=== PATIENT | female | born 1990 | race Caucasian/White ===

== ENCOUNTER 2018-04-24 21:18 | Emergency (ER) | payer SELFPAY ==
[2018-04-24] MEDS ORDERED: Alum Hydrox/Mag Hydrox/Simeth 15 ML, Metoclopramide 5 MG, Lidocaine 2% 5 ML PO ONE ×3 (21:39)
[2018-04-24] MEDS ORDERED: Ondansetron 4 MG/2 ML SDV IVPUSH ONE (21:40)
[2018-04-24] MEDS ORDERED: Sodium Chloride 0.9% 1,000 ML IV ONE (21:40)
[2018-04-24] MEDS ORDERED: Pantoprazole 40 MG Vial IVPUSH ONE (21:40)
--- NOTE | 2018-04-24 21:43 | EDM.PDOC ---
ED HPI GENERAL MEDICAL PROBLEM - General Chief Complaint: Abdominal Pain Stated Complaint: PT HAS STOMACH PAINS Time Seen by Provider: 04/24/18 21:34 - History of Present Illness INITIAL COMMENTS - FREE TEXT/NARRATIVE: HISTORY AND PHYSICAL: History of present illness: Patient's 27-year-old white female sensory concern of upper abdominal pain patient has had a prior cholecystectomy she's had this for past 1 week she describes it as somewhat sharp vague intermittent was worse today there's been no fever chills chest pain shortness breath no diarrhea she has had some vomiting she denies history of known peptic ulcer disease or gastroesophageal reflux disease Review of systems: As per history of present illness and below otherwise all systems reviewed and negative. Past medical history: As per history of present illness and as reviewed below otherwise noncontributory. Surgical history: As per history of present illness and as reviewed below otherwise noncontributory. Social history: No reported history of drug or alcohol abuse. Family history: As per history of present illness and as reviewed below otherwise noncontributory. Physical exam: HEENT: Atraumatic, normocephalic, pupils reactive, negative for conjunctival pallor or scleral icterus, mucous membranes moist, throat clear, neck supple, nontender, trachea midline. Lungs: Clear to auscultation, breath sounds equal bilaterally, chest nontender. Heart: S1S2, regular, negative for clicks, rubs, or JVD. Abdomen: Soft, nondistended, no localized tenderness. Negative for masses or hepatosplenomegaly. Negative for costovertebral tenderness. Pelvis: Stable nontender. Genitourinary: Deferred. Rectal: Deferred. Extremities: Atraumatic, negative for cords or calf pain. Neurovascular unremarkable. Neuro: Awake, alert, oriented. Cranial nerves II through XII unremarkable. Cerebellum unremarkable. Motor and sensory unremarkable throughout. Exam nonfocal. Diagnostics: CBC CMP UA lipase hCG CT abdomen and pelvis Therapeutics: Saline 1 L bolus Protonix 80 mg IV GI cocktail Impression: #1 upper abdominal pain #2 vomiting Definitive disposition and diagnosis as appropriate pending reevaluation and review of above. Bilateral Upper Abdominal Pain Score (Numeric/FACES): 10 - Related Data Allergies Allergy/AdvReac Type Severity Reaction Status Date / Time iodine Allergy Swelling Verified 04/24/18 21:40 latex Allergy Hives Verified 04/24/18 21:40 Penicillins Allergy Anaphylactic Verified 04/24/18 21:40 Shock Home Meds: Home Meds . [No Known Home Meds] 04/24/18 [History] Past Medical History - Past Surgical History GI Surgical History: Reports: Cholecystectomy Social & Family History - Tobacco Use Smoking Status *Q: Current Every Day Smoker Years of Tobacco use: 8 Packs/Tins Daily: 0.2 ED ROS GENERAL - Review of Systems Review Of Systems: ROS reveals no pertinent complaints other than HPI. ED EXAM, GENERAL - Physical Exam Exam: See Below (See dictation) Course - Vital Signs Last Recorded V/S: Last Vital Signs Temp 36.6 C 04/24/18 21:37 Pulse 66 04/24/18 22:30 Resp 18 04/24/18 22:30 BP 116/75 04/24/18 22:30 Pulse Ox 97 04/24/18 22:30 - Orders/Labs/Meds Orders: Active Orders 24 hr Category Date Time Status Abdomen Pelvis wo Cont [CT] Stat Exams 04/24/18 21:39 Taken HCG QUALITATIVE,URINE [URCHEM] Stat Lab 04/24/18 22:12 Ordered UA W/MICROSCOPIC [URIN] Stat Lab 04/24/18 22:12 Ordered Labs: Laboratory Tests 04/24/18 04/24/18 04/24/18 Range/Units 21:37 21:37 21:37 WBC 8.80 (4.0-11.0) K/uL RBC 4.43 (4.30-5.90) M/uL Hgb 13.7 (12.0-16.0) g/dL Hct 40.9 (36.0-46.0) % MCV 92.3 (80.0-98.0) fL MCH 30.9 (27.0-32.0) pg MCHC 33.5 (31.0-37.0) g/dL RDW Std Deviation 41.3 (28.0-62.0) fl RDW Coeff of Scot 12 (11.0-15.0) % Plt Count 288 (150-400) K/uL MPV 9.90 (7.40-12.00) fL Neut % (Auto) 58.3 (48.0-80.0) % Lymph % (Auto) 33.9 (16.0-40.0) % Gilmer % (Auto) 5.6 (0.0-15.0) % Eos % (Auto) 1.9 (0.0-7.0) % Baso % (Auto) 0.3 (0.0-1.5) % Neut # (Auto) 5.1 (1.4-5.7) K/uL Lymph # (Auto) 3.0 H (0.6-2.4) K/uL Gilmer # (Auto) 0.5 (0.0-0.8) K/uL Eos # (Auto) 0.2 (0.0-0.7) K/uL Baso # (Auto) 0.0 (0.0-0.1) K/uL Nucleated RBC % 0.0 /100WBC Nucleated RBCs # 0 K/uL Sodium 141 (136-145) mmol/L Potassium 3.6 (3.5-5.1) mmol/L Chloride 107 (98-107) mmol/L Carbon Dioxide 26.3 (21.0-32.0) mmol/L BUN 12 (7.0-18.0) mg/dL Creatinine 0.7 (0.6-1.0) mg/dL Est Cr Clr Drug Dosing 119.62 mL/min Estimated GFR (MDRD) > 60.0 ml/min Glucose 106 (74-106) mg/dL Calcium 9.0 (8.5-10.1) mg/dL Total Bilirubin 0.2 (0.2-1.0) mg/dL AST 12 L (15-37) IU/L ALT 20 (14-63) IU/L Alkaline Phosphatase 78 (46-116) U/L Total Protein 6.8 (6.4-8.2) g/dL Albumin 3.8 (3.4-5.0) g/dL Globulin 3.0 (2.0-3.5) g/dL Albumin/Globulin Ratio 1.3 (1.3-2.8) Lipase 130 (73-393) U/L Urine Color Urine Appearance Urine pH (5.0-8.0) Ur Specific [place] (1.001-1.035) Urine Protein (NEGATIVE) mg/dL Urine Glucose (UA) (NEGATIVE) mg/dL Urine Ketones (NEGATIVE) mg/dL Urine Occult Blood (NEGATIVE) Urine Nitrite (NEGATIVE) Urine Bilirubin (NEGATIVE) Urine Urobilinogen (<2.0) EU/dL Ur Leukocyte Esterase (NEGATIVE) Urine RBC (0-2/HPF) Urine WBC (0-5/HPF) Ur Epithelial Cells (NONE-FEW) Urine Bacteria (NEGATIVE) Urine Mucus (NONE-MOD) Urine HCG, Qual (NEGATIVE) 04/24/18 04/24/18 Range/Units 22:12 22:12 WBC (4.0-11.0) K/uL RBC (4.30-5.90) M/uL Hgb (12.0-16.0) g/dL Hct (36.0-46.0) % MCV (80.0-98.0) fL MCH (27.0-32.0) pg MCHC (31.0-37.0) g/dL RDW Std Deviation (28.0-62.0) fl RDW Coeff of Scot (11.0-15.0) % Plt Count (150-400) K/uL MPV (7.40-12.00) fL Neut % (Auto) (48.0-80.0) % Lymph % (Auto) (16.0-40.0) % Gilmer % (Auto) (0.0-15.0) % Eos % (Auto) (0.0-7.0) % Baso % (Auto) (0.0-1.5) % Neut # (Auto) (1.4-5.7) K/uL Lymph # (Auto) (0.6-2.4) K/uL Gilmer # (Auto) (0.0-0.8) K/uL Eos # (Auto) (0.0-0.7) K/uL Baso # (Auto) (0.0-0.1) K/uL Nucleated RBC % /100WBC Nucleated RBCs # K/uL Sodium (136-145) mmol/L Potassium (3.5-5.1) mmol/L Chloride (98-107) mmol/L Carbon Dioxide (21.0-32.0) mmol/L BUN (7.0-18.0) mg/dL Creatinine (0.6-1.0) mg/dL Est Cr Clr Drug Dosing mL/min Estimated GFR (MDRD) ml/min Glucose (74-106) mg/dL Calcium (8.5-10.1) mg/dL Total Bilirubin (0.2-1.0) mg/dL AST (15-37) IU/L ALT (14-63) IU/L Alkaline Phosphatase (46-116) U/L Total Protein (6.4-8.2) g/dL Albumin (3.4-5.0) g/dL Globulin (2.0-3.5) g/dL Albumin/Globulin Ratio (1.3-2.8) Lipase (73-393) U/L Urine Color YELLOW Urine Appearance CLEAR Urine pH 6.0 (5.0-8.0) Ur Specific [place] >= 1.030 (1.001-1.035) Urine Protein NEGATIVE (NEGATIVE) mg/dL Urine Glucose (UA) NEGATIVE (NEGATIVE) mg/dL Urine Ketones NEGATIVE (NEGATIVE) mg/dL Urine Occult Blood SMALL H (NEGATIVE) Urine Nitrite NEGATIVE (NEGATIVE) Urine Bilirubin NEGATIVE (NEGATIVE) Urine Urobilinogen 0.2 (<2.0) EU/dL Ur Leukocyte Esterase NEGATIVE (NEGATIVE) Urine RBC 0-2 (0-2/HPF) Urine WBC 0-2 (0-5/HPF) Ur Epithelial Cells FEW (NONE-FEW) Urine Bacteria FEW (NEGATIVE) Urine Mucus LIGHT (NONE-MOD) Urine HCG, Qual NEGATIVE (NEGATIVE) Meds: Medications Discontinued Medications Generic Name Dose Route Start Last Admin Trade Name Freq PRN Reason Stop Dose Admin Al Hydroxide/Mg Hydroxide 15 0 ml 04/24/18 21:39 04/24/18 21:56 ml/ Metoclopramide HCl 5 mg/ PO 04/24/18 21:40 1 each Lidocaine HCl 5 ml ONETIME ONE Administration Sodium Chloride 1,000 mls @ 999 mls/hr 04/24/18 21:40 04/24/18 21:57 Normal Saline IV 04/24/18 22:40 999 mls/hr STAT ONE Administration Ondansetron HCl 4 mg 04/24/18 21:40 04/24/18 21:56 Zofran IVPUSH 04/24/18 21:41 4 mg ONETIME ONE Administration Pantoprazole Sodium 80 mg 04/24/18 21:40 04/24/18 21:56 Protonix Iv IVPUSH 04/24/18 21:41 80 mg .BOLUS ONE Administration Departure - Departure Time of Disposition: 23:41 Disposition: Home, Self-Care 01 Condition: Good Clinical Impression: Abdominal pain - Discharge Information *PRESCRIPTION DRUG MONITORING PROGRAM REVIEWED*: Not Applicable *COPY OF PRESCRIPTION DRUG MONITORING REPORT IN PATIENT SHILPA: Not Applicable Referrals: PCP,None [Primary Care Provider] - Forms: ED Department Discharge Additional Instructions: The following information is given to patients seen in the emergency department who are being discharged to home. This information is to outline your options for follow-up care. We provide all patients seen in our emergency department with a follow-up referral. The need for follow-up, as well as the timing and circumstances, are variable depending upon the specifics of your emergency department visit. If you don't have a primary care physician on staff, we will provide you with a referral. We always advise you to contact your personal physician following an emergency department visit to inform them of the circumstance of the visit and for follow-up with them and/or the need for any referrals to a consulting specialist. The emergency department will also refer you to a specialist when appropriate. This referral assures that you have the opportunity for followup care with a specialist. All of these measure are taken in an effort to provide you with optimal care, which includes your followup. Under all circumstances we always encourage you to contact your private physician who remains a resource for coordinating your care. When calling for followup care, please make the office aware that this follow-up is from your recent emergency room visit. If for any reason you are refused follow-up, please contact the [facility] emergency department at and asked to speak to the emergency department charge nurse. [facility] [address] [place] [id number] [facility] - General Surgery Professional Building [address] [place] [address], [address] [place] [address] Protonix as prescribed clear liquids as directed bland diet follow-up primary care in Gen. surgery call to schedule appointment - My Orders Last 24 Hours: My Active Orders 04/24/18 21:39 Abdomen Pelvis wo Cont [CT] Stat - Assessment/Plan Last 24 Hours: My Active Orders 04/24/18 21:39 Abdomen Pelvis wo Cont [CT] Stat
[2018-04-24 22:11] LABS: CHLORIDE,CL 107 mmol/L (98-107); SODIUM,NA 141 mmol/L (136-145)
--- NOTE | 2018-04-25 11:21 | CT ---
EXAM DATE: 04/24/18 PATIENT'S AGE: 27 Patient: TOM CELIS Facility: [place], [place] Site . Site : 1990 Study: CT Abdomen/Pelvis w/o cont. [id number]/21/2018 11:04:31 PM Ordering Physician: Von Boggs Final Report: INDICATION: Left upper quadrant pain. TECHNIQUE: CT Abdomen and pelvis without i.v. contrast. Coronal and sagittal reformats were obtained. CONTRAST: None COMPARISON: None FINDINGS: Lower chest: Unremarkable. Liver: Unremarkable. Spleen: Unremarkable. Pancreas: Unremarkable. Gallbladder: Previous cholecystectomy noted without significant intra- or extrahepatic biliary ductal dilatation seen. Kidney: Unremarkable. No kidney or ureteral stones or obstruction seen. Adrenal: Unremarkable. Bowel: Unremarkable. The appendix is normal in appearance and size. Vascular: Unremarkable. Lymph: Unremarkable. Peritoneum: Unremarkable. No pneumoperitoneum is seen. No significant ascites is noted. Pelvis: Unremarkable. Soft tissue: Unremarkable. Bone: Unremarkable for age. IMPRESSION: 1. Unremarkable with no CT correlate for the patient`s symptoms seen. Dictated by Nate Rouse MD @ 04/24/2018 11:18:49 PM Please note that all CT scans at this facility use dose modulation, iterative reconstruction, and/or weight-based dosing when appropriate to reduce radiation dose to as low as reasonably achievable. Dictated by: Nate Rouse MD @ 04/24/2018 23:18:53 (Electronic Signature) Report Signed by Proxy. [facility]OSPITAL[facility]
== END 2018-04-25 00:01 | disposition home or self-care (01) ==
LOC: MW.ED 21:18
DX: R10.11 Right upper quadrant pain (principal); R10.12 Left upper quadrant pain; R11.10 Vomiting, unspecified; Z88.0 Allergy status to penicillin; Z91.040 Latex allergy status; F17.210 Nicotine dependence, cigarettes, uncomplicated; Z90.49 Acquired absence of other specified parts of digestive tract
CPT/HCPCS: 36415; 74176; 80053; 81001; 81025; 83690; 85025; 96361; 96374; 96375; 99284; A9270; C9113; J2405; J7040; 99283

== ENCOUNTER 2018-05-06 13:52 | Emergency (ER) | payer SELFPAY ==
[2018-05-06] MEDS ORDERED: HYDROmorphone 2 MG/ML SDV IVPUSH ONE (14:03)
[2018-05-06] MEDS ORDERED: ceFAZolin 1 GM Vial ONE (14:04)
[2018-05-06] MEDS: HYDROmorphone 2 MG/ML SDV ONE ×2 (14:08→17:42)
[2018-05-06] MEDS ORDERED: Diphtheria,Pertussis(Acell),Tetanus Vaccine 0.5 ML Syringe IM ONE (14:09)
[2018-05-06] MEDS ORDERED: Diphtheria,Pertussis(Acell),Tetanus Vaccine 0.5 ML Syringe ONE (14:10)
[2018-05-06] MEDS ORDERED: Clindamycin Phosphate in D5W 900 MG in Premix Bag 1 BAG IV SCH ×2 (14:15)
[2018-05-06] MEDS ORDERED: Sodium Chloride 0.9% 250 ML IV SCH (14:15)
--- NOTE | 2018-05-06 14:15 | EDM.PDOC ---
ED HPI GENERAL MEDICAL PROBLEM - General Chief Complaint: Lower Extremity Injury/Pain Stated Complaint: AMB Time Seen by Provider: 05/06/18 14:16 - History of Present Illness INITIAL COMMENTS - FREE TEXT/NARRATIVE: HISTORY AND PHYSICAL: History of present illness: Patient is a 27-year-old white female who presents with past medical history significant for seizure disorder for which she had a seizure and subsequent fall injuring her ankle bilaterally on arrival here patient has a open fracture dislocation of the left ankle and a closed fracture dislocation of the right ankle she is in a c-collar she relates she is alert she denies any other trauma or concern she was given fentanyl en route for pain. Review of systems: As per history of present illness and below otherwise all systems reviewed and negative. Past medical history: As per history of present illness and as reviewed below otherwise noncontributory. Surgical history: As per history of present illness and as reviewed below otherwise noncontributory. Social history: No reported history of drug or alcohol abuse. Family history: As per history of present illness and as reviewed below otherwise noncontributory. Physical exam: HEENT: Atraumatic, normocephalic, pupils reactive, negative for conjunctival pallor or scleral icterus, mucous membranes moist, throat clear, neck supple, nontender, trachea midline. Lungs: Clear to auscultation, breath sounds equal bilaterally, chest nontender. Heart: S1S2, regular, negative for clicks, rubs, or JVD. Abdomen: Soft, nondistended, nontender. Negative for masses or hepatosplenomegaly. Negative for costovertebral tenderness. Pelvis: Stable nontender. Genitourinary: Deferred. Rectal: Deferred. Extremities: Ankles bilaterally and gross deformities with obvious fracture dislocation the left with a wound and obvious open fracture on the medial aspect. Both were reduced to facilitate splinting comfort and maintain neurovascular integrity. Status post reduction occlusive dressing on the left and posterior mold was placed posterior mold was placed on the right. There is good distal pulses CMS in neurovascular remained intact. Neuro: Awake, alert, oriented. Cranial nerves II through XII unremarkable. Cerebellum unremarkable. Motor and sensory unremarkable throughout. Exam nonfocal. Diagnostics: Bilateral ankle x-ray CBC CMP Therapeutics: Clindamycin 900 mg IV tetanus update as indicated Dilaudid 2 mg IV Impression: #1 seizure with known seizure disorder #2 bilateral ankle fracture dislocation Definitive disposition and diagnosis as appropriate pending reevaluation and review of above. - Related Data Allergies Allergy/AdvReac Type Severity Reaction Status Date / Time iodine Allergy Swelling Verified 05/06/18 13:53 latex Allergy Hives Verified 05/06/18 13:53 Penicillins Allergy Anaphylactic Verified 05/06/18 13:53 Shock Home Meds: Home Meds . [No Known Home Meds] 04/24/18 [History] Past Medical History - Past Surgical History GI Surgical History: Reports: Cholecystectomy Review of Systems - Review of Systems Review Of Systems: ROS reveals no pertinent complaints other than HPI. ED EXAM, GENERAL - Physical Exam Exam: See Below (See dictation) Course - Orders/Labs/Meds Orders: Active Orders 24 hr Category Date Time Status Vaccines to be Administered [RC] PER UNIT ROUTINE Care 05/06/18 14:09 Active Ankle 2V Lt [CR] Stat Exams 05/06/18 Taken Ankle 2V Lt [CR] Stat Exams 05/06/18 13:53 Ordered Ankle 2V Rt [CR] Stat Exams 05/06/18 13:53 Ordered CBC WITH AUTO DIFF [HEME] Stat Lab 05/06/18 13:54 Ordered CMP [COMPREHENSIVE METABOLIC PN,CMP] [CHEM] Stat Lab 05/06/18 13:54 Ordered Clindamycin Phosphate in D5W [Cleocin in D5W] 900 mg Med 05/06/18 14:15 Active Premix Bag 1 bag IV ONETIME Sodium Chloride 0.9% [Normal Saline] 250 ml Med 05/06/18 14:15 Active IV STAT Medication Orders Sodium Chloride (Normal Saline) 250 mls @ 999 mls/hr IV STAT MIL Clindamycin Phosphate 900 mg/ (Premix) 50 mls @ 100 mls/hr IV ONETIME MIL Meds: Medications Generic Name Dose Route Start Last Admin Trade Name Freq PRN Reason Stop Dose Admin Sodium Chloride 250 mls @ 999 mls/hr 05/06/18 14:15 Normal Saline IV STAT MIL Clindamycin Phosphate 900 mg/ 50 mls @ 100 mls/hr 05/06/18 14:15 Premix IV ONETIME MIL Discontinued Medications Generic Name Dose Route Start Last Admin Trade Name Freq PRN Reason Stop Dose Admin Cefazolin Sodium Confirm 05/06/18 14:04 Ancef Administered 05/06/18 14:05 Dose 2 gm .ROUTE .STK-MED ONE Diphtheria/Tetanus/Acell Pertussis 0.5 ml 05/06/18 14:09 Adacel IM 05/06/18 14:10 .ONCE ONE Diphtheria/Tetanus/Acell Pertussis Confirm 05/06/18 14:10 Adacel Administered 05/06/18 14:11 Dose 0.5 ml .ROUTE .STK-MED ONE Hydromorphone HCl Confirm 05/06/18 14:03 Dilaudid Administered 05/06/18 14:04 Dose 2 mg .ROUTE .STK-MED ONE Departure - Departure Time of Disposition: 14:12 Disposition: DC/[facility]fer to [facility] 02 Condition: Good Clinical Impression: Bilateral ankle fractures, Seizure disorder - Discharge Information *PRESCRIPTION DRUG MONITORING PROGRAM REVIEWED*: Not Applicable *COPY OF PRESCRIPTION DRUG MONITORING REPORT IN PATIENT SHILPA: Not Applicable Forms: ED Department Discharge - My Orders Last 24 Hours: My Active Orders 05/06/18 13:53 Ankle 2V Lt [CR] Stat Ankle 2V Rt [CR] Stat 05/06/18 13:54 CBC WITH AUTO DIFF [HEME] Stat CMP [COMPREHENSIVE METABOLIC PN,CMP] [CHEM] Stat 05/06/18 14:15 Clindamycin Phosphate in D5W [Cleocin in D5W] 900 mg Premix Bag 1 bag IV ONETIME - Assessment/Plan Last 24 Hours: My Active Orders 05/06/18 13:53 Ankle 2V Lt [CR] Stat Ankle 2V Rt [CR] Stat 05/06/18 13:54 CBC WITH AUTO DIFF [HEME] Stat CMP [COMPREHENSIVE METABOLIC PN,CMP] [CHEM] Stat 05/06/18 14:15 Clindamycin Phosphate in D5W [Cleocin in D5W] 900 mg Premix Bag 1 bag IV ONETIME
[2018-05-06 14:42] LABS: CHLORIDE,CL 104 mmol/L (98-107); SODIUM,NA 137 mmol/L (136-145)
[2018-05-06] MEDS ORDERED: HYDROmorphone 1 MG/ML Syringe ONE (14:46)
[2018-05-06] MEDS ORDERED: HYDROmorphone 1 MG/ML Syringe IVPUSH ONE (14:48)
--- NOTE | 2018-05-07 13:50 | CR ---
EXAM DATE: 05/06/18 PATIENT'S AGE: 27 Patient: TOM CELIS Facility: [place], [place] Site . Site : 1990 Study: XRay Extremity Right ankle [id number]/2/[id number] 2:10:08 PM Ordering Physician: Doctor Lott Final Report: INDICATION: Fall TECHNIQUE: Two views of the right ankle FINDINGS: Comminuted displaced angulated distal fibular fracture with lateral displacement and lateral and posterior angulation. Ankle dislocation with posterior displacement of the talus in relationship to the tibia. Medial malleolar fracture. Soft tissue swelling. IMPRESSION: 1. Fracture dislocation of the ankle with posterior displacement of the talus in relationship to the tibia. Distal fibula and medial malleolus fractures. Dictated by Citlaly Hill MD @ May 06 2018 2:14PM (Electronic Signature) Report Signed by Proxy. KENNETH
--- NOTE | 2018-05-07 13:51 | CR ---
EXAM DATE: 05/06/18 PATIENT'S AGE: 27 Patient: TOM CELIS Facility: [place], [place] Site . Site : 1990 Study: XRay Extremity Left ANKLE [id number]/2/2018 2:10:48 PM Ordering Physician: Doctor Lott Final Report: Indication: Fall trauma two views of the left ankle Technique: Two views of the left ankle Findings: Comminuted displaced angulated fracture of the distal fibula with medial angulation and lateral displacement of the distal fibula. Ankle dislocation with talus located posteriorly and laterally in relationship to the tibia. Multiple fracture fragments adjacent to the distal tibia with probable impaction fractures involving the distal aspect of the tibia. Diffuse soft tissue swelling. Impression: 1. Comminuted angulated displaced fracture of the distal fibula. 2. Ankle dislocation with the talus posterior and lateral in relationship to the tibia. 3. Multiple fracture fragments adjacent to the distal tibia likely reflecting multiple impaction fractures of the distal tibia. Dictated by Venkatesh Hill MD @ May 06 2018 2:22PM (Electronic Signature) Report Signed by Proxy. KENNETH
--- NOTE | 2018-05-07 13:53 | CR ---
EXAM DATE: 05/06/18 PATIENT'S AGE: 27 Patient: TOM CELIS Facility: [place], [place] Site . Site : 1990 Study: XRay Extremity Left ANKLE [id number]/2/[id number] 2:11:29 PM Ordering Physician: Doctor Lott Final Report: INDICATION: POST REDUCTION OF DISLOCATION COMPARISON: Left ankle series dated 06 May 2018. FINDINGS: A single view of the left ankle shows mild improvement in the alignment of the displaced comminuted distal fibular fracture as well as the displaced fractures of the medial malleolus and posterior aspect of the distal tibia. Improvement in the lateral dislocation at the tibiotalar joint. Bandage over the exposed portion of the medial malleolar fracture. Dictated by Venkatesh Hill MD @ 05/06/2018 2:26:35 PM Dictated by: Venkatesh Hill MD @ 05/06/2018 14:26:46 (Electronic Signature) Report Signed by Proxy. KENNETH
== END 2018-05-06 14:46 ==
LOC: MW.ED 13:52
DX: S82.832B Other fracture of upper and lower end of left fibula, initial encounter for open fracture type I or II (principal); S82.51XA Displaced fracture of medial malleolus of right tibia, initial encounter for closed fracture; S82.451A Displaced comminuted fracture of shaft of right fibula, initial encounter for closed fracture; G40.909 Epilepsy, unspecified, not intractable, without status epilepticus; Z88.0 Allergy status to penicillin; Z91.040 Latex allergy status; Z23 Encounter for immunization; W19.XXXA Unspecified fall, initial encounter
CPT/HCPCS: 36415; 73600; 80053; 85025; 90471; 90715; 96365; 96375; 96376; 99284; J1170; J3490

== ENCOUNTER 2018-09-29 16:51 | Emergency (ER) | payer MEDICAID ==
--- NOTE | 2018-09-29 17:55 | EDM.PDOC ---
ED HPI GENERAL MEDICAL PROBLEM - General Chief Complaint: ENT Problem Stated Complaint: sore throat LOSING VOICE Time Seen by Provider: 09/29/18 17:55 Source of Information: Reports: Patient History Limitations: Reports: No Limitations - History of Present Illness INITIAL COMMENTS - FREE TEXT/NARRATIVE: HISTORY AND PHYSICAL: History of present illness: Patient is a 28-year-old female here with complaint of sore throat and hoarse voice. She states she developed a sore throat 5 days ago and developed a cough and chest congestion 3 days ago. She has been hot and cold on and off but denies fevers, nausea, vomiting, abdominal pain, diarrhea, wheezing. She is feeling somewhat short of breath. Denies history of asthma or any other significant past medical history. She reports smoking history, 1/2-1ppd x 6 years. Review of systems: As per history of present illness and below otherwise all systems reviewed and negative. Past medical history: As per history of present illness and as reviewed below otherwise noncontributory. Surgical history: As per history of present illness and as reviewed below otherwise noncontributory. Social history: No reported history of drug or alcohol abuse. Family history: As per history of present illness and as reviewed below otherwise noncontributory. Physical exam: General: Patient sitting comfortably in no acute distress and nontoxic appearing. Voice is hoarse sounding. HEENT: Atraumatic, normocephalic, pupils reactive, negative for conjunctival pallor or scleral icterus, mucous membranes moist, throat clear, neck supple, nontender, trachea midline. No meningeal signs. Lungs: Clear to auscultation, breath sounds equal bilaterally, chest nontender. Heart: S1S2, regular, negative for clicks, rubs, or overt murmur. Abdomen: Soft, nondistended, nontender. Negative for masses or hepatosplenomegaly. Negative for costovertebral tenderness. Pelvis: Stable nontender. Genitourinary: Deferred. Rectal: Deferred. Extremities: Atraumatic, negative for cords or calf pain. Neurovascular unremarkable. Neuro: Awake, alert, oriented. Cranial nerves II through XII unremarkable. Cerebellum unremarkable. Motor and sensory unremarkable throughout. Exam nonfocal. Notes: Diagnostics: rapid strep, influenza, CXR Therapeutics: None Prescriptions: None Impression: Viral URI Plan: 1. OTC cold medications as instructed. 2. Follow-up with primary care provider 3. Turn to ED as needed as discussed Definitive disposition and diagnosis as appropriate pending reevaluation and review of above. 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[employer] History: Reports: None Musculoskeletal History: Reports: None Neurological History: Reports: Seizure, Other (See Below) Other Neuro History: epilepsy Psychiatric History: Reports: Depression Endocrine/Metabolic History: Reports: None Hematologic History: Reports: None Immunologic History: Reports: None Oncologic (Cancer) History: Reports: None Dermatologic History: Reports: None - Infectious Disease History Infectious Disease History: Reports: None - Past Surgical History Head Surgeries/Procedures: Reports: None GI Surgical History: Reports: Cholecystectomy Musculoskeletal Surgical History: Reports: Other (See Below) Other Musculoskeletal Surgeries/Procedures:: ankle surgery Social & Family History - Family History Family Medical History: Noncontributory - Tobacco Use Smoking Status *Q: Never Smoker - Caffeine Use Caffeine Use: Reports: None - Recreational Drug Use Recreational Drug Use: No ED ROS ENT - Review of Systems Review Of Systems: ROS reveals no pertinent complaints other than HPI. ED EXAM, ENT - Physical Exam Exam: See Below (see dictation) Course - Vital Signs Last Recorded V/S: Last Vital Signs Temp Pulse 74 09/29/18 17:43 Resp 20 09/29/18 17:43 BP 140/81 09/29/18 17:43 Pulse Ox 100 09/29/18 17:43 - Orders/Labs/Meds Orders: Active Orders 24 hr Category Date Time Status Chest 1V Frontal [CR] Stat Exams 09/29/18 17:59 Taken CULTURE STREP A CONFIRMATION [RM] Stat Lab 09/29/18 17:48 Results STREP SCRN A RAPID W CULT CONF [RM] Stat Lab 09/29/18 17:48 Results Departure - Departure Time of Disposition: 18:59 Disposition: Home, Self-Care 01 Condition: Good Clinical Impression: Viral URI - Discharge Information Referrals: PCP,Unknown [Primary Care Provider] - Forms: ED Department Discharge Additional Instructions: The following information is given to patients seen in the emergency department who are being discharged to home. This information is to outline your options for follow-up care. We provide all patients seen in our emergency department with a follow-up referral. The need for follow-up, as well as the timing and circumstances, are variable depending upon the specifics of your emergency department visit. If you don't have a primary care physician on staff, we will provide you with a referral. We always advise you to contact your personal physician following an emergency department visit to inform them of the circumstance of the visit and for follow-up with them and/or the need for any referrals to a consulting specialist. The emergency department will also refer you to a specialist when appropriate. This referral assures that you have the opportunity for follow-up care with a specialist. All of these measure are taken in an effort to provide you with optimal care, which includes your follow-up. Under all circumstances we always encourage you to contact your private physician who remains a resource for coordinating your care. When calling for follow-up care, please make the office aware that this follow-up is from your recent emergency room visit. If for any reason you are refused follow-up, please contact the [facility] Emergency Department at and asked to speak to the emergency department charge nurse. [facility] [address] [place] [id number] 1. OTC cold medications as instructed. 2. Follow-up with primary care provider 3. Turn to ED as needed as discussed - My Orders Last 24 Hours: My Active Orders 09/29/18 17:48 CULTURE STREP A CONFIRMATION [RM] Stat STREP SCRN A RAPID W CULT CONF [RM] Stat 09/29/18 17:59 Chest 1V Frontal [CR] Stat - Assessment/Plan Last 24 Hours: My Active Orders 09/29/18 17:48 CULTURE STREP A CONFIRMATION [RM] Stat STREP SCRN A RAPID W CULT CONF [RM] Stat 09/29/18 17:59 Chest 1V Frontal [CR] Stat
--- NOTE | 2018-09-29 18:56 | CR ---
INDICATION: Pain and shortness of breath. TECHNIQUE: Chest 1 view. COMPARISON: None FINDINGS: Cardiovascular and mediastinum: Heart size and vasculature are normal in caliber and appearance. Mediastinum is within normal limits. Lungs and pleural space: Lungs are clear. No sign of infiltrate or mass. No sign of pleural effusion. No pneumothorax. Bones and soft tissues: No significant findings. IMPRESSION: Unremarkable chest. Dictated by Bertin Cali MD @ Sep 29 2018 6:54PM Signed by Dr. Bertin Cali @ Sep 29 2018 6:54PM
== END 2018-09-29 19:13 | disposition home or self-care (01) ==
LOC: MW.ED 16:51
DX: J06.9 Acute upper respiratory infection, unspecified (principal); Z91.040 Latex allergy status; Z88.0 Allergy status to penicillin; Z88.8 Allergy status to other drugs, medicaments and biological substances
CPT/HCPCS: 71045; 71045-26; 87081; 87804; 87880-QW; 99283

== ENCOUNTER 2018-12-10 15:54 | Emergency (ER) | payer MEDICAID ==
[2018-12-10] MEDS ORDERED: Sodium Chloride 0.9% 1,000 ML IV ONE (16:25)
[2018-12-10 17:17] LABS: CHLORIDE,CL 111 mmol/L (98-107); SODIUM,NA 144 mmol/L (136-145)
--- NOTE | 2018-12-10 17:34 | EDM.PDOC ---
ED HPI GENERAL MEDICAL PROBLEM - General Chief Complaint: General Stated Complaint: DIZZY Time Seen by Provider: 12/10/18 15:57 Source of Information: Reports: Patient History Limitations: Reports: No Limitations - History of Present Illness INITIAL COMMENTS - FREE TEXT/NARRATIVE: HISTORY AND PHYSICAL: History of present illness: Patient is a 1-year-old female presents to the ED today via EMS with dizziness and malaise 2 days. Patient states yesterday she had an episode where she had to stand concerns because she felt dizzy and like she might fall over. Patient states she has a history of a seizure disorder and is concerned that it may be related. Patient states she feels as if the room is spinning at times. She states the dizziness is worse when she stands up and better when she lays down. Patient stats she has not taken anything for her symptoms. Patient states she has had some nausea but has not vomited. Patient denies fever, chills, chest pain, shortness of breath, or cough. Denies headache, neck stiff ness, change in vision, syncope. Denies vomiting, abdominal pain, diarrhea, constipation, or dysuria. Has not noted any blood in urine or stool. Patient has been eating and drinking appropriately. Patient has a history of a seizure disorder, headaches, and depression. Review of systems: As per history of present illness and below otherwise all systems reviewed and negative. Past medical history: As per history of present illness and as reviewed below otherwise noncontributory. Surgical history: As per history of present illness and as reviewed below otherwise noncontributory. Social history: See social history for further information Family history: As per history of present illness and as reviewed below otherwise noncontributory. Physical exam: General: Patient is alert, oriented, and in no acute distress. Patient sitting comfortably on exam table. Non toxic. Non focal. HEENT: Atraumatic, normocephalic, pupils equal and reactive bilaterally, negative for conjunctival pallor or scleral icterus, mucous membranes moist, TMs normal bilaterally, throat clear, neck supple, nontender, trachea midline. No drooling or trismus noted. No meningeal signs. No hot potato voice noted. EOM intact. Lungs: Clear to auscultation, breath sounds equal bilaterally, chest nontender. Heart: S1S2, regular rate and rhythm without overt murmur Abdomen: Obese, soft, nondistended, nontender. Negative for masses or hepatosplenomegaly. Negative for costovertebral tenderness. Pelvis: Stable nontender. Genitourinary: Deferred. Rectal: Deferred. Skin: Intact, warm, dry. No lesions or rashes noted. Extremities: Atraumatic, negative for cords or calf pain. Neurovascular unremarkable. Neuro: Awake, alert, oriented. Cranial nerves II through XII unremarkable. Cerebellum unremarkable. Motor and sensory unremarkable throughout. Exam nonfocal. Notes: Patient received Zofran in route to hospital. Chest x-ray shows no acute cardiopulmonary findings. Head CT shows no acute sign of injury to the brain with nothing seen to explain the patient's head pain. No change and mild prominence of the hippocampal CSF space in the right temporal lobe raising the possibility of hippocampal atrophy on the right related to the patient's seizure history Discussed these findings with patient. Discussed the need to follow up with the primary care provider. Supportive care measures were reviewed and discussed. Voices understanding and is agreeable to plan of care. Denies any further questions or concerns at this time. Diagnostics: CBC, CMP, UA, urine hCG, orthostatic vitals, EKG, head CT Therapeutics: Saline, zofran, toradol Prescription: Meclizine Zofran Impression: Vertigo, unspecified Plan: 1. Take medication as prescribed. Follow up with your primary care provider as discussed. 2. Can alternate ibuprofen and Tylenol as directed for pain and discomfort. 3. Return to the ED as needed and as discussed. Definitive disposition and diagnosis as appropriate pending reevaluation and review of above. Headache Pain Score (Numeric/FACES): 6 - Related Data Allergies Allergy/AdvReac Type Severity Reaction Status Date / Time iodine Allergy Swelling Verified 12/10/18 15:56 latex Allergy Hives Verified 12/10/18 15:56 Penicillins Allergy Anaphylactic Verified 12/10/18 15:56 Shock Home Meds: Home Meds Topiramate [Topamax] 100 mg PO DAILY 09/29/18 [History] Zolpidem [Ambien] 10 mg PO DAILY 09/29/18 [History] Diclofenac Sodium [Voltaren] 75 mg PO ASDIRECTED 12/10/18 [History] Lacosamide [Vimpat] 50 mg PO BID 12/10/18 [History] Past Medical History HEENT History: Reports: None Cardiovascular History: Reports: None Respiratory History: Reports: None Gastrointestinal History: Reports: Bowel Obstruction Genitourinary History: Reports: None TITLE OFFICER History: Reports: None Musculoskeletal History: Reports: Fracture Neurological History: Reports: Seizure, Other (See Below) Other Neuro History: epilepsy Psychiatric History: Reports: Depression Endocrine/Metabolic History: Reports: None Hematologic History: Reports: None Immunologic History: Reports: None Oncologic (Cancer) History: Reports: None Dermatologic History: Reports: None - Infectious Disease History Infectious Disease History: Reports: None - Past Surgical History Head Surgeries/Procedures: Reports: None GI Surgical History: Reports: Cholecystectomy Musculoskeletal Surgical History: Reports: Other (See Below) Other Musculoskeletal Surgeries/Procedures:: ankle surgery Social & Family History - Family History Family Medical History: Noncontributory - Tobacco Use Smoking Status *Q: Former Smoker Used Tobacco, but Quit: Yes Month/Year Tobacco Last Used: 2017 - Caffeine Use Caffeine Use: Reports: Tea - Recreational Drug Use Recreational Drug Use: No ED ROS GENERAL - Review of Systems Review Of Systems: ROS reveals no pertinent complaints other than HPI. ED EXAM, GENERAL - Physical Exam Exam: See Below (See dictation) Course - Vital Signs Last Recorded V/S: Last Vital Signs Temp 37.1 C 12/10/18 15:58 Pulse 82 12/10/18 15:58 Resp 16 12/10/18 15:58 BP 121/58 L 12/10/18 15:58 Pulse Ox 100 12/10/18 15:58 Orthostatic Blood Pressure [ 133/65 Standing] Orthostatic Blood Pressure [ 143/86 Sitting] Orthostatic Blood Pressure [ 141/87 Supine] - Orders/Labs/Meds Orders: Active Orders 24 hr Category Date Time Status EKG Documentation Completion [RC] STAT Care 12/10/18 16:26 Active Orthostatic Vital Signs [RC] ASDIRECTED Care 12/10/18 16:26 Active Labs: Laboratory Tests 12/10/18 12/10/18 12/10/18 Range/Units 16:37 16:37 17:31 WBC 4.76 (4.0-11.0) K/uL RBC 3.94 L (4.30-5.90) M/uL Hgb 12.0 (12.0-16.0) g/dL Hct 36.2 (36.0-46.0) % MCV 91.9 (80.0-98.0) fL MCH 30.5 (27.0-32.0) pg MCHC 33.1 (31.0-37.0) g/dL RDW Std Deviation 42.5 (28.0-62.0) fl RDW Coeff of Scot 13 (11.0-15.0) % Plt Count 249 (150-400) K/uL MPV 10.60 (7.40-12.00) fL Neut % (Auto) 59.6 (48.0-80.0) % Lymph % (Auto) 30.7 (16.0-40.0) % Briscoe % (Auto) 7.8 (0.0-15.0) % Eos % (Auto) 1.3 (0.0-7.0) % Baso % (Auto) 0.6 (0.0-1.5) % Neut # (Auto) 2.8 (1.4-5.7) K/uL Lymph # (Auto) 1.5 (0.6-2.4) K/uL Briscoe # (Auto) 0.4 (0.0-0.8) K/uL Eos # (Auto) 0.1 (0.0-0.7) K/uL Baso # (Auto) 0.0 (0.0-0.1) K/uL Nucleated RBC % 0.0 /100WBC Nucleated RBCs # 0 K/uL Sodium 144 (136-145) mmol/L Potassium 3.9 (3.5-5.1) mmol/L Chloride 111 H (98-107) mmol/L Carbon Dioxide 21.9 (21.0-32.0) mmol/L BUN 12 (7.0-18.0) mg/dL Creatinine 0.7 (0.6-1.0) mg/dL Est Cr Clr Drug Dosing 118.54 mL/min Estimated GFR (MDRD) > 60.0 ml/min Glucose 89 (74-106) mg/dL Calcium 8.5 (8.5-10.1) mg/dL Total Bilirubin 0.3 (0.2-1.0) mg/dL AST 10 L (15-37) IU/L ALT 19 (14-63) IU/L Alkaline Phosphatase 76 (46-116) U/L Total Protein 5.9 L (6.4-8.2) g/dL Albumin 3.3 L (3.4-5.0) g/dL Globulin 2.6 (2.6-4.0) g/dL Albumin/Globulin Ratio 1.3 (0.9-1.6) Urine Color YELLOW Urine Appearance CLEAR Urine pH 7.0 (5.0-8.0) Ur Specific Pioneer 1.015 (1.001-1.035) Urine Protein NEGATIVE (NEGATIVE) mg/dL Urine Glucose (UA) NEGATIVE (NEGATIVE) mg/dL Urine Ketones NEGATIVE (NEGATIVE) mg/dL Urine Occult Blood NEGATIVE (NEGATIVE) Urine Nitrite NEGATIVE (NEGATIVE) Urine Bilirubin NEGATIVE (NEGATIVE) Urine Urobilinogen 0.2 (<2.0) EU/dL Ur Leukocyte Esterase NEGATIVE (NEGATIVE) Urine HCG, Qual (NEGATIVE) 12/10/18 Range/Units 17:31 WBC (4.0-11.0) K/uL RBC (4.30-5.90) M/uL Hgb (12.0-16.0) g/dL Hct (36.0-46.0) % MCV (80.0-98.0) fL MCH (27.0-32.0) pg MCHC (31.0-37.0) g/dL RDW Std Deviation (28.0-62.0) fl RDW Coeff of Scot (11.0-15.0) % Plt Count (150-400) K/uL MPV (7.40-12.00) fL Neut % (Auto) (48.0-80.0) % Lymph % (Auto) (16.0-40.0) % Briscoe % (Auto) (0.0-15.0) % Eos % (Auto) (0.0-7.0) % Baso % (Auto) (0.0-1.5) % Neut # (Auto) (1.4-5.7) K/uL Lymph # (Auto) (0.6-2.4) K/uL Briscoe # (Auto) (0.0-0.8) K/uL Eos # (Auto) (0.0-0.7) K/uL Baso # (Auto) (0.0-0.1) K/uL Nucleated RBC % /100WBC Nucleated RBCs # K/uL Sodium (136-145) mmol/L Potassium (3.5-5.1) mmol/L Chloride (98-107) mmol/L Carbon Dioxide (21.0-32.0) mmol/L BUN (7.0-18.0) mg/dL Creatinine (0.6-1.0) mg/dL Est Cr Clr Drug Dosing mL/min Estimated GFR (MDRD) ml/min Glucose (74-106) mg/dL Calcium (8.5-10.1) mg/dL Total Bilirubin (0.2-1.0) mg/dL AST (15-37) IU/L ALT (14-63) IU/L Alkaline Phosphatase (46-116) U/L Total Protein (6.4-8.2) g/dL Albumin (3.4-5.0) g/dL Globulin (2.6-4.0) g/dL Albumin/Globulin Ratio (0.9-1.6) Urine Color Urine Appearance Urine pH (5.0-8.0) Ur Specific Pioneer (1.001-1.035) Urine Protein (NEGATIVE) mg/dL Urine Glucose (UA) (NEGATIVE) mg/dL Urine Ketones (NEGATIVE) mg/dL Urine Occult Blood (NEGATIVE) Urine Nitrite (NEGATIVE) Urine Bilirubin (NEGATIVE) Urine Urobilinogen (<2.0) EU/dL Ur Leukocyte Esterase (NEGATIVE) Urine HCG, Qual NEGATIVE (NEGATIVE) Meds: Medications Discontinued Medications Generic Name Dose Route Start Last Admin Trade Name Freq PRN Reason Stop Dose Admin Sodium Chloride 1,000 mls @ 999 mls/hr 12/10/18 16:25 12/10/18 17:39 Normal Saline IV 12/10/18 17:25 999 mls/hr STAT ONE Administration Ketorolac Tromethamine 30 mg 12/10/18 19:08 12/10/18 19:29 Toradol IVPUSH 12/10/18 19:09 30 mg ONETIME ONE Administration Ondansetron HCl 4 mg 12/10/18 19:07 12/10/18 19:29 Zofran IVPUSH 12/10/18 19:08 4 mg ONETIME ONE Administration Departure - Departure Time of Disposition: 19:33 Disposition: Home, Self-Care 01 Clinical Impression: Vertigo - Discharge Information Instructions: Vertigo, [id number] Referrals: PCP,Unknown [Primary Care Provider] - Forms: ED Department Discharge Additional Instructions: The following information is given to patients seen in the emergency department who are being discharged to home. This information is to outline your options for follow-up care. We provide all patients seen in our emergency department with a follow-up referral. The need for follow-up, as well as the timing and circumstances, are variable depending upon the specifics of your emergency department visit. If you don't have a primary care physician on staff, we will provide you with a referral. We always advise you to contact your personal physician following an emergency department visit to inform them of the circumstance of the visit and for follow-up with them and/or the need for any referrals to a consulting specialist. The emergency department will also refer you to a specialist when appropriate. This referral assures that you have the opportunity for follow-up care with a specialist. All of these measure are taken in an effort to provide you with optimal care, which includes your follow-up. Under all circumstances we always encourage you to contact your private physician who remains a resource for coordinating your care. When calling for follow-up care, please make the office aware that this follow-up is from your recent emergency room visit. If for any reason you are refused follow-up, please contact the [facility] Emergency Department at and asked to speak to the emergency department charge nurse. [facility] [address] [place] [id number] [place] [address] 1. Take medication as prescribed. Follow up with your primary care provider as discussed. 2. Can alternate ibuprofen and Tylenol as directed for pain and discomfort. 3. Return to the ED as needed and as discussed. - My Orders Last 24 Hours: My Active Orders 12/10/18 16:26 EKG Documentation Completion [RC] STAT Orthostatic Vital Signs [RC] ASDIRECTED - Assessment/Plan Last 24 Hours: My Active Orders 12/10/18 16:26 EKG Documentation Completion [RC] STAT Orthostatic Vital Signs [RC] ASDIRECTED
[2018-12-10] MEDS ORDERED: Ondansetron 4 MG/2 ML SDV IVPUSH ONE (19:07)
--- NOTE | 2018-12-10 19:07 | CR ---
Indication: Dizziness. Technique: PA and lateral views the chest were obtained. Comparison: September 29, 2018. Findings: Heart is normal in size. The lungs are clear. No infiltrate, pleural effusion, or pneumothorax is identified. Impression: No acute cardiopulmonary process. Dictated by Haylee Cordon MD @ Dec 10 2018 7:04PM Signed by Dr. Haylee Cordon @ Dec 10 2018 7:06PM
[2018-12-10] MEDS ORDERED: Ketorolac 30 MG/ML SDV IVPUSH ONE (19:08)
--- NOTE | 2018-12-10 19:20 | CT ---
INDICATION: Head pain and dizziness starting last night. No history of recent head injury. History of epilepsy. COMPARISON: 07/31/2018 TECHNIQUE: CT examination of the head was performed with 3 mm thick axial sections without intravenous contrast. Images were obtained from the vertex of the skull through the skull base, and I examined the images with the brain and bone windows. Please note that all CT scans at this facility use dose modulation, iterative reconstruction, and/or weight-based dosing when appropriate to reduce radiation dose to as low as reasonably achievable. FINDINGS: The brain is normal in appearance for the patient`s age on today`s study, with no sign of mass lesion, mass effect, hemorrhage, or edema. The ventricles and sulci are normal in appearance for the patient`s age. There is mild prominence of CSF in the right jake-hippocampal region, best seen on the coronal images, raising the possibility of hippocampal atrophy, possibly related to the history of seizures. Nothing else is seen to correlate with the history of seizures. There is no sign of midline developmental abnormality, migrational abnormality, or abnormality of gyral formation or myelination. The visualized portions of the orbits are normal in appearance. The visualized paranasal sinuses and mastoids are clear. The osseous structures are normal in their appearance with no sign of abnormality in the skull base or calvarium. IMPRESSION: No sign of acute injury to the brain with nothing seen that would explain the patient`s head pain. No change in mild prominence of the jake-hippocampal CSF space in the right temporal lobe raising the possibility of hippocampal atrophy on the right related to the patient`s seizures. Please note that all CT scans at this facility use dose modulation, iterative reconstruction, and/or weight-based dosing when appropriate to reduce radiation dose to as low as reasonably achievable. Dictated by Chaitanya Kiran MD @ Dec 10 2018 7:12PM Signed by Dr. Chaitanya Kiran @ Dec 10 2018 7:17PM
== END 2018-12-10 20:04 | disposition home or self-care (01) ==
LOC: MW.ED 15:54
DX: R42 Dizziness and giddiness (principal); F32.9 Major depressive disorder, single episode, unspecified; Z91.040 Latex allergy status; Z88.0 Allergy status to penicillin; Z91.09 Other allergy status, other than to drugs and biological substances; Z79.899 Other long term (current) drug therapy; Z87.891 Personal history of nicotine dependence
CPT/HCPCS: 36415; 70450; 71046; 80053; 81003; 81025; 85025; 93005; 96361; 96374; 96375; 99285; J1885; J2405; J7040; 99283

== ENCOUNTER 2019-04-30 02:41 | Emergency (ER) | payer MEDICAID ==
[2019-04-30] MEDS ORDERED: Ketorolac 60 MG/2 ML SDV IM ONE (02:53)
--- NOTE | 2019-04-30 04:07 | CT ---
INDICATION: Headache with blurred vision, history of epilepsy. TECHNIQUE: CT head without contrast. COMPARISON: None. FINDINGS: CSF spaces: Within normal limits for age. Brain parenchyma: The thao-white differentiation is normal. No sign of mass, hemorrhage, or midline shift. Skull base and calvarium: The visualized paranasal sinuses and mastoid air cells demonstrate no acute or significant findings. The visualized orbits are grossly unremarkable. No skull fractures. IMPRESSION: Unremarkable noncontrast head CT. Please note that all CT scans at this facility use dose modulation, iterative reconstruction, and/or weight-based dosing when appropriate to reduce radiation dose to as low as reasonably achievable. Dictated by John Cuevas MD @ Apr 30 2019 4:04AM Signed by Dr. John Cuevas @ Apr 30 2019 4:07AM
--- NOTE | 2019-04-30 04:18 | EDM.PDOC ---
ED HPI GENERAL MEDICAL PROBLEM - General Chief Complaint: Headache Stated Complaint: HEADACHE AND DIZZINESS Time Seen by Provider: 04/30/19 04:18 - History of Present Illness INITIAL COMMENTS - FREE TEXT/NARRATIVE: HISTORY AND PHYSICAL: History of present illness: Patient 28-year-old female presents with concern of headache but no fever chills nausea vomiting or other complaints. Review of systems: As per history of present illness and below otherwise all systems reviewed and negative. Past medical history: As per history of present illness and as reviewed below otherwise noncontributory. Surgical history: As per history of present illness and as reviewed below otherwise noncontributory. Social history: No reported history of drug or alcohol abuse. Family history: As per history of present illness and as reviewed below otherwise noncontributory. Physical exam: HEENT: Atraumatic, normocephalic, pupils reactive, negative for conjunctival pallor or scleral icterus, mucous membranes moist, throat clear, neck supple, nontender, trachea midline. Lungs: Clear to auscultation, breath sounds equal bilaterally, chest nontender. Heart: S1S2, regular, negative for clicks, rubs, or JVD. Abdomen: Soft, nondistended, nontender. Negative for masses or hepatosplenomegaly. Negative for costovertebral tenderness. Pelvis: Stable nontender. Genitourinary: Deferred. Rectal: Deferred. Extremities: Atraumatic, negative for cords or calf pain. Neurovascular unremarkable. Neuro: Awake, alert, oriented. Cranial nerves II through XII unremarkable. Cerebellum unremarkable. Motor and sensory unremarkable throughout. Exam nonfocal. Diagnostics: CT brain Therapeutics: Toradol 60 mg IM Impression: #1 Cephalgia Definitive disposition and diagnosis as appropriate pending reevaluation and review of above. head Pain Score (Numeric/FACES): 5 - Related Data Allergies Allergy/AdvReac Type Severity Reaction Status Date / Time iodine Allergy Swelling Verified 04/30/19 02:53 latex Allergy Hives Verified 04/30/19 02:53 Penicillins Allergy Anaphylactic Verified 04/30/19 02:53 Shock Home Meds: Home Meds Topiramate [Topamax] 100 mg PO DAILY 09/29/18 [History] Diclofenac Sodium [Voltaren] 75 mg PO BID 12/10/18 [History] Lacosamide [Vimpat] 50 mg PO BID 12/10/18 [History] Eletriptan HBr [Relpax] 1 tab PO ASDIRECTED PRN 04/30/19 [History] Zolpidem [Ambien] 1 tab PO ASDIRECTED 04/30/19 [History] Past Medical History HEENT History: Reports: None Cardiovascular History: Reports: None Respiratory History: Reports: None Gastrointestinal History: Reports: Bowel Obstruction Genitourinary History: Reports: None 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 Musculoskeletal History: Reports: Fracture Neurological History: Reports: Migraines, Seizure, Other (See Below) Other Neuro History: epilepsy Psychiatric History: Reports: Depression Endocrine/Metabolic History: Reports: None Hematologic History: Reports: None Immunologic History: Reports: None Oncologic (Cancer) History: Reports: None Dermatologic History: Reports: None - Infectious Disease History Infectious Disease History: Reports: None - Past Surgical History Head Surgeries/Procedures: Reports: None GI Surgical History: Reports: Cholecystectomy Musculoskeletal Surgical History: Reports: Other (See Below) Other Musculoskeletal Surgeries/Procedures:: ankle surgery; foot sx Social & Family History - Family History Family Medical History: Noncontributory - Tobacco Use Smoking Status *Q: Never Smoker - Caffeine Use Caffeine Use: Reports: Tea - Recreational Drug Use Recreational Drug Use: No ED ROS GENERAL - Review of Systems Review Of Systems: ROS reveals no pertinent complaints other than HPI. ED EXAM, GENERAL - Physical Exam Exam: See Below (See dictation) Course - Vital Signs Last Recorded V/S: Last Vital Signs Temp 35.8 C 04/30/19 02:41 Pulse 98 04/30/19 02:41 Resp 18 04/30/19 02:41 BP 148/84 H 04/30/19 02:41 Pulse Ox 100 04/30/19 02:41 - Orders/Labs/Meds Orders: Active Orders 24 hr Category Date Time Status EKG Documentation Completion [RC] STAT Care 04/30/19 02:51 Active Labs: Laboratory Tests 04/30/19 Range/Units 02:55 Urine HCG, Qual NEGATIVE (NEGATIVE) Meds: Medications Discontinued Medications Generic Name Dose Route Start Last Admin Trade Name Freq PRN Reason Stop Dose Admin Ketorolac Tromethamine 60 mg 04/30/19 02:53 04/30/19 03:16 Toradol IM 04/30/19 02:54 60 mg ONETIME ONE Administration Departure - Departure Time of Disposition: 04:17 Disposition: Home, Self-Care 01 Condition: Good Clinical Impression: Cephalgia - Discharge Information Referrals: PCP,None [Primary Care Provider] - Additional Instructions: The following information is given to patients seen in the emergency department who are being discharged to home. This information is to outline your options for follow-up care. We provide all patients seen in our emergency department with a follow-up referral. The need for follow-up, as well as the timing and circumstances, are variable depending upon the specifics of your emergency department visit. If you don't have a primary care physician on staff, we will provide you with a referral. We always advise you to contact your personal physician following an emergency department visit to inform them of the circumstance of the visit and for follow-up with them and/or the need for any referrals to a consulting specialist. The emergency department will also refer you to a specialist when appropriate. This referral assures that you have the opportunity for followup care with a specialist. All of these measure are taken in an effort to provide you with optimal care, which includes your followup. Under all circumstances we always encourage you to contact your private physician who remains a resource for coordinating your care. When calling for followup care, please make the office aware that this follow-up is from your recent emergency room visit. If for any reason you are refused follow-up, please contact the [facility] emergency department at and asked to speak to the emergency department charge nurse. Follow-up primary medical doctor return as needed as discussed - My Orders Last 24 Hours: My Active Orders 04/30/19 02:51 EKG Documentation Completion [RC] STAT - Assessment/Plan Last 24 Hours: My Active Orders 04/30/19 02:51 EKG Documentation Completion [RC] STAT
== END 2019-04-30 04:30 | disposition home or self-care (01) ==
LOC: MW.ED 02:41
DX: R51 Headache (principal); Z88.0 Allergy status to penicillin; Z91.040 Latex allergy status; Z91.048 Other nonmedicinal substance allergy status; Z79.899 Other long term (current) drug therapy
CPT/HCPCS: 70450; 81025; 93005; 96372; 99284; J1885

== ENCOUNTER 2020-04-17 22:56 | Emergency (ER) | payer SELFPAY ==
[2020-04-17] MEDS ORDERED: diphenhydrAMINE 50 MG/ML SDV IVPUSH ONE (23:01)
[2020-04-17] MEDS ORDERED: methylPREDNISolone Sodium Succinate 125 MG/2 ML SDV IVPUSH ONE (23:03)
--- NOTE | 2020-04-17 23:10 | EDM.PDOC ---
ED HPI GENERAL MEDICAL PROBLEM - General Chief Complaint: Respiratory Problem Stated Complaint: STEPPED ON SOMETHING, THROAT CLOSING UP Time Seen by Provider: 04/17/20 23:00 - History of Present Illness INITIAL COMMENTS - FREE TEXT/NARRATIVE: Patient is a 29-year-old female she denies other medications or medical problems she reports that this evening she was walking out of [employer] and wonders if she stepped on something with her right foot as she started to have pain and then was unable to bear any weight on her right forefoot after getting out of the car. She reports intermittent pain that worsens with attempted pressure that sometimes shoots up into the right ankle and leg. She notes extensive right ankle surgery due to severe fracture few years ago. Pain is minimal without direct pressure at this time. Patient reports that they could find no sign of violation of the shoe or sock. Patient reports that now over the last half hour she is developed a sensation of throat tightness and closure with difficulty swallowing. She has a history of allergy to penicillin as well as latex. She denies known food allergies. She reports that she had a frozen drink from [employer] as well as other food this evening. She reports a sensation of trouble breathing and swallowing she denies any rash or itching. She denies any chest pain. The symptoms are constant and slowly progressive without exacerbating or alleviating factors radiation or other associated symptoms. Right Feet Pain Score (Numeric/FACES): 4 - Related Data Allergies Allergy/AdvReac Type Severity Reaction Status Date / Time iodine Allergy Swelling Verified 04/17/20 23:06 latex Allergy Hives Verified 04/17/20 23:06 Penicillins Allergy Anaphylactic Verified 04/17/20 23:06 Shock Home Meds: Home Meds Topiramate [Topamax] 100 mg PO BID 09/29/18 [History] Amitriptyline [Elavil] 20 mg PO DAILY 04/17/20 [History] Past Medical History HEENT History: Reports: None Cardiovascular History: Reports: None Respiratory History: Reports: None Gastrointestinal History: Reports: Bowel Obstruction Genitourinary History: Reports: None 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 Musculoskeletal History: Reports: Fracture Neurological History: Reports: Migraines, Seizure, Other (See Below) Other Neuro History: epilepsy Psychiatric History: Reports: Depression Endocrine/Metabolic History: Reports: None Hematologic History: Reports: None Immunologic History: Reports: None Oncologic (Cancer) History: Reports: None Dermatologic History: Reports: None - Infectious Disease History Infectious Disease History: Reports: None - Past Surgical History Head Surgeries/Procedures: Reports: None GI Surgical History: Reports: Cholecystectomy Musculoskeletal Surgical History: Reports: Other (See Below) Other Musculoskeletal Surgeries/Procedures:: ankle surgery; foot sx Social & Family History - Family History Family Medical History: Noncontributory - Caffeine Use Caffeine Use: Reports: Tea ED ROS GENERAL - Review of Systems Review Of Systems: See Below Free Text/Narrative/Comment: General: No fever. Skin: No rash. Eyes: No vision problems. ENT: Per HPI Neck: No neck stiffness. Respiratory: No shortness of breath. Cardiac: No chest pain. Gastrointestinal: No nausea, vomiting or abdominal pain. Urinary: No dysuria. Musculoskeletal: Per HPI Neurologic: No headache. ED EXAM, GENERAL - Physical Exam Exam: See Below Free Text/Narrative:: General Appearance: No acute distress, appears comfortable Skin: No rash HEENT: Normocephalic/atraumatic, sclera anicteric, mucous membranes moist, no stridor no wheezing no submental or sublingual swelling no lingual swelling no palpable swelling of the face or neck. Neck: Normal range of motion Chest and Lungs: Bilateral breath sounds, clear to auscultation Cardiovascular: Regular rate and rhythm, no murmur Abdomen: Soft, non-tender Back: Normal Musculoskeletal: Tenderness between the heads of the first and second metatarsals of the right foot without sign of skin violation or palpable retained foreign body otherwise foot is nontender no focal bony tenderness with the exception of the medial malleolus of the right foot which the patient states is chronic related to her prior fractures. No foot or ankle swelling Neurologic: Awake, alert, no obvious deficits, moving all extremities Psychiatric: Appropriate, cooperative Course - Vital Signs Last Recorded V/S: Last Vital Signs Temp 99.1 F 04/17/20 23:02 Pulse 82 04/18/20 00:45 Resp 16 04/18/20 00:45 BP 116/66 04/18/20 00:45 Pulse Ox 97 04/18/20 00:45 - Orders/Labs/Meds Meds: Medications Discontinued Medications Generic Name Dose Route Start Last Admin Trade Name Freq PRN Reason Stop Dose Admin Diphenhydramine HCl 50 mg 04/17/20 23:01 04/17/20 23:09 Benadryl IVPUSH 04/17/20 23:02 50 mg ONETIME ONE Administration Methylprednisolone Sodium Succinate 125 mg 04/17/20 23:03 04/17/20 23:09 Solu-Medrol IVPUSH 04/17/20 23:04 125 mg ONETIME ONE Administration Departure - Departure Time of Disposition: 01:10 Disposition: Home, Self-Care 01 Condition: Good Clinical Impression: Allergic reaction, Foot pain - Discharge Information *PRESCRIPTION DRUG MONITORING PROGRAM REVIEWED*: Not Applicable *COPY OF PRESCRIPTION DRUG MONITORING REPORT IN PATIENT SHILPA: Not Applicable Instructions: Allergies, Adult, [id number], Neuropathic Pain Referrals: PCP,None [Primary Care Provider] - [facility] [Outside] Forms: ED Department Discharge Additional Instructions: The following information is given to patients seen in the emergency department who are being discharged to home. This information is to outline your options for follow-up care. We provide all patients seen in our emergency department with a follow-up referral. The need for follow-up, as well as the timing and circumstances, are variable depending upon the specifics of your emergency department visit. If you don't have a primary care physician on staff, we will provide you with a referral. We always advise you to contact your personal physician following an emergency department visit to inform them of the circumstance of the visit and for follow-up with them and/or the need for any referrals to a consulting specialist. The emergency department will also refer you to a specialist when appropriate. This referral assures that you have the opportunity for follow-up care with a specialist. All of these measure are taken in an effort to provide you with optimal care, which includes your follow-up. Under all circumstances we always encourage you to contact your private physician who remains a resource for coordinating your care. When calling for follow-up care, please make the office aware that this follow-up is from your recent emergency room visit. If for any reason you are refused follow-up, please contact the [facility] Emergency Department at and asked to speak to the emergency department charge nurse. Sepsis Event Note (ED) - Focused Exam Vital Signs: Vital Signs Temp Pulse Resp BP Pulse Ox 04/18/20 00:45 82 16 116/66 97 04/17/20 23:30 94 18 141/70 H 100 04/17/20 23:02 99.1 F 127 H 20 154/96 H 100 - Assessment/Plan Assessment:: Regarding the patient's right foot pain x-ray to exclude retained foreign body such as glass is been ordered. There is no sign of skin violation. There is no cellulitis foot is well-perfused and neurovascularly intact. Fracture considered. It will be shown on the x-ray. However no clear mechanism for fracture exist. 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 There is no sign of severe intraoral swelling no signs of HAND THERMAL CUTTER or RPA. 0108: Patient's x-ray is normal patient did have 1 spontaneous shot of pain. But general she is feeling better. The tightness in her throat has resolved. Is possible that the symptoms in her throat were due to the orange-cream milkshake as she reports an episode of vomiting in the parking lot just prior to arrival that included this milkshake despite the fact that she had had it several hours ago. That said I do not think we can reliably say that this caused an allergic reaction. We discussed the need for her to follow-up with primary care could consider allergy testing but in the meantime she will avoid any similar milkshakes or citrus. Patient will follow-up regarding her foot as well no fracture no foreign body is possible that due to her extensive prior orthopedic surgery on that extremity she stepped wrong and irritated a nerve which is what caused her intermittent pain. That said given lack of any findings on exam that would suggest violation of the skin in the normal x-ray I do not see indication for further imaging or evaluation of the foot at this time. It is neurovascularly intact and well perfused.
--- NOTE | 2020-04-18 01:02 | CR ---
Indication: Acute pain between heads of 1st and 2nd metatarsals Technique: Two views of the right foot Comparison: None Findings: There is no fracture or joint dislocation. There is no significant soft tissue edema. No radiopaque foreign body is seen in the plantar soft tissues. Fixation hardware is partially visualized at the ankle. Impression: No acute abnormality. Dictated by Flakito Francois MD @ Apr 18 2020 12:58AM Signed by Dr. Flakito Francois @ Apr 18 2020 1:00AM
== END 2020-04-18 01:23 | disposition home or self-care (01) ==
LOC: MW.ED 22:56
DX: M79.671 Pain in right foot (principal); T78.40XA Allergy, unspecified, initial encounter; G40.909 Epilepsy, unspecified, not intractable, without status epilepticus; F32.9 Major depressive disorder, single episode, unspecified; Z88.0 Allergy status to penicillin; Z91.040 Latex allergy status; Z79.899 Other long term (current) drug therapy; Z91.09 Other allergy status, other than to drugs and biological substances
CPT/HCPCS: 73620; 96374; 96375; 99283; J1200; J2930

== ENCOUNTER 2020-12-19 14:15 | Emergency (ER) | payer OTHER ==
[2020-12-19] MEDS ORDERED: Sodium Chloride 0.9% 2.5 ML Syringe FLUSH PRN (14:17)
[2020-12-19] MEDS ORDERED: Sodium Chloride 0.9% 10 ML Syringe FLUSH PRN (14:17)
[2020-12-19] MEDS ORDERED: LORazepam 2 MG/ML SDV IVPUSH ONE (14:18)
--- NOTE | 2020-12-19 14:31 | EDM.PDOC ---
ED HPI GENERAL MEDICAL PROBLEM - General Chief Complaint: Neuro Symptoms/Deficits Stated Complaint: SEIZURES Time Seen by Provider: 12/19/20 14:17 - History of Present Illness INITIAL COMMENTS - FREE TEXT/NARRATIVE: 30-year-old female with a history of seizure disorder on Topamax and Elavil with normally very occasional seizures presents postictal after seizure episode. Patient does not recall any of the incident. Patient's friend did not witness the event but notes that she is on Elavil. Patient is too postictal to provide additional history at this time. Head Pain Score (Numeric/FACES): 8 - Related Data Allergies Allergy/AdvReac Type Severity Reaction Status Date / Time iodine Allergy Swelling Verified 12/19/20 14:18 latex Allergy Hives Verified 12/19/20 14:18 Penicillins Allergy Anaphylactic Verified 12/19/20 14:18 Shock Home Meds: Home Meds Topiramate [Topamax] 100 mg PO BID 09/29/18 [History] Amitriptyline [Elavil] 20 mg PO DAILY 04/17/20 [History] Past Medical History HEENT History: Reports: Impaired Vision Other HEENT History: wears glasses Cardiovascular History: Reports: None Respiratory History: Reports: None Gastrointestinal History: Reports: Bowel Obstruction Genitourinary History: Reports: None SITE HEAD History: Reports: None Musculoskeletal History: Reports: Fracture Neurological History: Reports: Migraines, Seizure, Other (See Below) Other Neuro History: epilepsy Psychiatric History: Reports: Depression Endocrine/Metabolic History: Reports: None Hematologic History: Reports: None Immunologic History: Reports: None Oncologic (Cancer) History: Reports: None Dermatologic History: Reports: None - Infectious Disease History Infectious Disease History: Reports: None - Past Surgical History Head Surgeries/Procedures: Reports: None GI Surgical History: Reports: Cholecystectomy Musculoskeletal Surgical History: Reports: Other (See Below) Other Musculoskeletal Surgeries/Procedures:: ankle surgery; foot sx Social & Family History - Family History Family Medical History: No Pertinent Family History - Tobacco Use Tobacco Use Status *Q: Never Tobacco User - Caffeine Use Caffeine Use: Reports: None - Recreational Drug Use Recreational Drug Use: No ED ROS GENERAL - Review of Systems Review Of Systems: See Below Free Text/Narrative/Comment: 6general: No fever. Skin: No rash. Eyes: blurry vision ENT: No sore throat. Neck: No neck stiffness. Respiratory: No shortness of breath. Cardiac: No chest pain. Gastrointestinal: No nausea, vomiting or abdominal pain. Musculoskeletal: No myalgias/arthralgias. Neurologic: per HPI ED EXAM, GENERAL - Physical Exam Exam: See Below Free Text/Narrative:: General Appearance: No acute distress, appears comfortable Skin: No rash HEENT: Normocephalic, 3cm left frontal scalp contusion without laceration, sclera anicteric, mucous membranes moist, 5 mm superficial laceration left lateral tongue no active bleeding Neck: Normal range of motion Chest and Lungs: Bilateral breath sounds, clear to auscultation Cardiovascular: Regular rate and rhythm, no murmur Abdomen: Soft, non-tender Back: Normal Musculoskeletal: No edema or tenderness Neurologic: Awake, alert, somewhat slow to respond and does not recall any of the event, face symmetric moves all 4 extremities well Psychiatric: Appropriate, cooperative Course - Vital Signs Last Recorded V/S: Last Vital Signs Temp 97.8 F 12/19/20 14:19 Pulse 96 12/19/20 15:30 Resp 16 12/19/20 15:30 BP 141/79 H 12/19/20 15:30 Pulse Ox 100 12/19/20 15:30 - Orders/Labs/Meds Orders: Active Orders 24 hr Category Date Time Status Sodium Chloride 0.9% [Saline Flush] Med 12/19/20 14:17 Active 10 ml FLUSH ASDIRECTED PRN Sodium Chloride 0.9% [Saline Flush] Med 12/19/20 14:17 Active 2.5 ml FLUSH ASDIRECTED PRN Saline Lock Insert [OM.PC] Stat Oth 12/19/20 14:17 Ordered Medication Orders Sodium Chloride (Sodium Chloride 0.9% 10 Ml Syringe) 10 ml FLUSH ASDIRECTED PRN PRN Reason: Keep Vein Open Last Admin: 12/19/20 14:27 Dose: 10 ml Documented by: AYLA Sodium Chloride (Sodium Chloride 0.9% 2.5 Ml Syringe) 2.5 ml FLUSH ASDIRECTED PRN PRN Reason: Keep Vein Open Last Admin: 12/19/20 14:27 Dose: 2.5 ml Documented by: AYLA Labs: Laboratory Tests 12/19/20 12/19/20 12/19/20 Range/Units 15:10 15:10 15:45 WBC 6.27 (4.0-11.0) K/uL RBC 4.43 (4.30-5.90) M/uL Hgb 13.6 (12.0-16.0) g/dL Hct 41.7 (36.0-46.0) % MCV 94.1 (80.0-98.0) fL MCH 30.7 (27.0-32.0) pg MCHC 32.6 (31.0-37.0) g/dL RDW Std Deviation 43.5 (28.0-62.0) fl RDW Coeff of Scot 13 (11.0-15.0) % Plt Count 303 (150-400) K/uL MPV 11.10 (7.40-12.00) fL Neut % (Auto) 58.4 (48.0-80.0) % Lymph % (Auto) 29.5 (16.0-40.0) % Vigo % (Auto) 7.5 (0.0-15.0) % Eos % (Auto) 4.1 (0.0-7.0) % Baso % (Auto) 0.5 (0.0-1.5) % Neut # (Auto) 3.7 (1.4-5.7) K/uL Lymph # (Auto) 1.9 (0.6-2.4) K/uL Vigo # (Auto) 0.5 (0.0-0.8) K/uL Eos # (Auto) 0.3 (0.0-0.7) K/uL Baso # (Auto) 0.0 (0.0-0.1) K/uL Nucleated RBC % 0.0 /100WBC Nucleated RBCs # 0 K/uL Sodium 142 (136-145) mmol/L Potassium 3.8 (3.5-5.1) mmol/L Chloride 107 (98-107) mmol/L Carbon Dioxide 17.7 L (21.0-32.0) mmol/L BUN 12 (7.0-18.0) mg/dL Creatinine 0.8 (0.6-1.0) mg/dL Est Cr Clr Drug Dosing 101.84 mL/min Estimated GFR (MDRD) > 60.0 ml/min Glucose 82 (74-106) mg/dL Calcium 8.7 (8.5-10.1) mg/dL Total Bilirubin 0.3 (0.2-1.0) mg/dL AST 15 (15-37) IU/L ALT 24 (14-63) IU/L Alkaline Phosphatase 87 (46-116) U/L Total Protein 7.0 (6.4-8.2) g/dL Albumin 3.7 (3.4-5.0) g/dL Globulin 3.3 (2.6-4.0) g/dL Albumin/Globulin Ratio 1.1 (0.9-1.6) Urine Color Urine Appearance Urine pH (5.0-8.0) Ur Specific [place] (1.001-1.035) Urine Protein (NEGATIVE) mg/dL Urine Glucose (UA) (NEGATIVE) mg/dL Urine Ketones (NEGATIVE) mg/dL Urine Occult Blood (NEGATIVE) Urine Nitrite (NEGATIVE) Urine Bilirubin (NEGATIVE) Urine Urobilinogen (<2.0) EU/dL Ur Leukocyte Esterase (NEGATIVE) Urine RBC (0-2/HPF) Urine WBC (0-5/HPF) Ur Epithelial Cells (NONE-FEW) Urine Bacteria (NEGATIVE) Urine HCG, Qual NEGATIVE (NEGATIVE) 12/19/20 Range/Units 15:52 WBC (4.0-11.0) K/uL RBC (4.30-5.90) M/uL Hgb (12.0-16.0) g/dL Hct (36.0-46.0) % MCV (80.0-98.0) fL MCH (27.0-32.0) pg MCHC (31.0-37.0) g/dL RDW Std Deviation (28.0-62.0) fl RDW Coeff of Scot (11.0-15.0) % Plt Count (150-400) K/uL MPV (7.40-12.00) fL Neut % (Auto) (48.0-80.0) % Lymph % (Auto) (16.0-40.0) % Vigo % (Auto) (0.0-15.0) % Eos % (Auto) (0.0-7.0) % Baso % (Auto) (0.0-1.5) % Neut # (Auto) (1.4-5.7) K/uL Lymph # (Auto) (0.6-2.4) K/uL Vigo # (Auto) (0.0-0.8) K/uL Eos # (Auto) (0.0-0.7) K/uL Baso # (Auto) (0.0-0.1) K/uL Nucleated RBC % /100WBC Nucleated RBCs # K/uL Sodium (136-145) mmol/L Potassium (3.5-5.1) mmol/L Chloride (98-107) mmol/L Carbon Dioxide (21.0-32.0) mmol/L BUN (7.0-18.0) mg/dL Creatinine (0.6-1.0) mg/dL Est Cr Clr Drug Dosing mL/min Estimated GFR (MDRD) ml/min Glucose (74-106) mg/dL Calcium (8.5-10.1) mg/dL Total Bilirubin (0.2-1.0) mg/dL AST (15-37) IU/L ALT (14-63) IU/L Alkaline Phosphatase (46-116) U/L Total Protein (6.4-8.2) g/dL Albumin (3.4-5.0) g/dL Globulin (2.6-4.0) g/dL Albumin/Globulin Ratio (0.9-1.6) Urine Color YELLOW Urine Appearance CLEAR Urine pH 8.0 (5.0-8.0) Ur Specific [place] 1.025 (1.001-1.035) Urine Protein 30 H (NEGATIVE) mg/dL Urine Glucose (UA) NEGATIVE (NEGATIVE) mg/dL Urine Ketones NEGATIVE (NEGATIVE) mg/dL Urine Occult Blood NEGATIVE (NEGATIVE) Urine Nitrite NEGATIVE (NEGATIVE) Urine Bilirubin NEGATIVE (NEGATIVE) Urine Urobilinogen 0.2 (<2.0) EU/dL Ur Leukocyte Esterase NEGATIVE (NEGATIVE) Urine RBC 0-1 (0-2/HPF) Urine WBC 0-2 (0-5/HPF) Ur Epithelial Cells FEW (NONE-FEW) Urine Bacteria FEW (NEGATIVE) Urine HCG, Qual (NEGATIVE) Meds: Medications Generic Name Dose Route Start Last Admin Trade Name Freq PRN Reason Stop Dose Admin Sodium Chloride 10 ml 12/19/20 14:17 12/19/20 14:27 Sodium Chloride 0.9% 10 Ml Syringe FLUSH 10 ml ASDIRECTED PRN Administration Keep Vein Open Sodium Chloride 2.5 ml 12/19/20 14:17 12/19/20 14:27 Sodium Chloride 0.9% 2.5 Ml Syringe FLUSH 2.5 ml ASDIRECTED PRN Administration Keep Vein Open Discontinued Medications Generic Name Dose Route Start Last Admin Trade Name Shamarq PRN Reason Stop Dose Admin Ketorolac Tromethamine 15 mg 12/19/20 15:54 12/19/20 16:21 Ketorolac 30 Mg/Ml Sdv IVPUSH 12/19/20 15:55 15 mg ONETIME ONE Administration Lorazepam 1 mg 12/19/20 14:18 12/19/20 14:23 Lorazepam 2 Mg/Ml Sdv IVPUSH 12/19/20 14:19 1 mg ONETIME ONE Administration Departure - Departure Time of Disposition: 17:20 Disposition: Home, Self-Care 01 Condition: Good Clinical Impression: Seizure - Discharge Information *PRESCRIPTION DRUG MONITORING PROGRAM REVIEWED*: Not Applicable *COPY OF PRESCRIPTION DRUG MONITORING REPORT IN PATIENT SHILPA: Not Applicable Instructions: Seizure, Adult Forms: ED Department Discharge Additional Instructions: Please contact your primary doctor to let them know about your seizure today. Please do not swim or bath alone, or engage in other activities where a sudden loss of consciousness could be dangerous until you follow-up with your doctor. Please do not drive for 6 months or until cleared to do so by your doctor. The following information is given to patients seen in the emergency department who are being discharged to home. This information is to outline your options for follow-up care. We provide all patients seen in our emergency department with a follow-up referral. The need for follow-up, as well as the timing and circumstances, are variable depending upon the specifics of your emergency department visit. If you don't have a primary care physician on staff, we will provide you with a referral. We always advise you to contact your personal physician following an emergency department visit to inform them of the circumstance of the visit and for follow-up with them and/or the need for any referrals to a consulting specialist. The emergency department will also refer you to a specialist when appropriate. This referral assures that you have the opportunity for follow-up care with a specialist. All of these measure are taken in an effort to provide you with optimal care, which includes your follow-up. Under all circumstances we always encourage you to contact your private physician who remains a resource for coordinating your care. When calling for follow-up care, please make the office aware that this follow-up is from your recent emergency room visit. If for any reason you are refused follow-up, please contact the [facility] Emergency Department at and asked to speak to the emergency department charge nurse. Sepsis Event Note (ED) - Evaluation Sepsis Screening Result: No Definite Risk - Focused Exam Vital Signs: Vital Signs Temp Pulse Resp BP Pulse Ox 12/19/20 15:30 96 16 141/79 H 100 12/19/20 15:00 98 15 146/86 H 97 12/19/20 14:30 103 H 17 148/95 H 99 12/19/20 14:19 97.8 F 117 H 18 151/95 H 100 - My Orders Last 24 Hours: My Active Orders 12/19/20 14:17 Sodium Chloride 0.9% [Saline Flush] 10 ml FLUSH ASDIRECTED PRN Sodium Chloride 0.9% [Saline Flush] 2.5 ml FLUSH ASDIRECTED PRN Saline Lock Insert [OM.PC] Stat - Assessment/Plan Last 24 Hours: My Active Orders 12/19/20 14:17 Sodium Chloride 0.9% [Saline Flush] 10 ml FLUSH ASDIRECTED PRN Sodium Chloride 0.9% [Saline Flush] 2.5 ml FLUSH ASDIRECTED PRN Saline Lock Insert [OM.PC] Stat Assessment:: 30-year-old female with a history of seizure disorder presents postictal after seizure. No signs of trauma neurologic exam nonfocal at this time will need continued reassessment. CBC CMP and urinalysis ordered as well as urine . Given reported prior history nonfocal exam no indication for CT scan of the brain at this time patient has no neck pain. She did arrive in a c- collar but had no focal tenderness was able to range her neck well and could be clinically cleared. No signs of meningitis or encephalitis at this point. Labs are pending and will continue to reassess. Patient given 1 mg of Ativan. 1555: Patient is labs are unremarkable. Patient now is awake and alert. She reports a moderate headache as well as chronic pain in the right ankle that she normally takes diclofenac for. Patient states that she last had a seizure in September. She reports compliance with her medications. She states that she has been more stressed out over the last few days because of her father's health problems back in [place]. However, aside from that she cannot think why she might of had a seizure today. Will provide some Toradol for headache and reassess. 1715: Pt's headache is mildly improved. It is still present which is typical for her post seizure. Pt will be staying with her friend logan. Will con't PO trial and ambulate for dc. 1720: Patient ambulatory with a steady gait. Discharged with instructions to f/u.
[2020-12-19 15:44] LABS: BLOOD UREA NITROGEN,BUN 12 mg/dL (7.0-18.0); CARBON DIOXIDE,CO2 17.7 mmol/L (21.0-32.0); CHLORIDE,CL 107 mmol/L (98-107); GLUCOSE RANDOM 82 mg/dL (74-106); POTASSIUM,K 3.8 mmol/L (3.5-5.1); SODIUM,NA 142 mmol/L (136-145)
[2020-12-19] MEDS ORDERED: Ketorolac 30 MG/ML SDV IVPUSH ONE (15:54)
== END 2020-12-19 17:33 | disposition home or self-care (01) ==
LOC: MW.ED 14:15
DX: G40.909 Epilepsy, unspecified, not intractable, without status epilepticus (principal); S01.512A Laceration without foreign body of oral cavity, initial encounter; Z91.048 Other nonmedicinal substance allergy status; Z91.040 Latex allergy status; Z88.0 Allergy status to penicillin; Z79.899 Other long term (current) drug therapy; X58.XXXA Exposure to other specified factors, initial encounter
CPT/HCPCS: 36415; 80053; 81001; 81025; 85025; 96374; 96375; 99284; J1885; J2060

== ENCOUNTER 2020-12-24 16:10 | Emergency (ER) | payer OTHER ==
[2020-12-24 16:57] LABS: BLOOD UREA NITROGEN,BUN 13 mg/dL (7.0-18.0); CARBON DIOXIDE,CO2 25.6 mmol/L (21.0-32.0); CHLORIDE,CL 106 mmol/L (98-107); GLUCOSE RANDOM 109 mg/dL (74-106); POTASSIUM,K 3.7 mmol/L (3.5-5.1); SODIUM,NA 142 mmol/L (136-145)
[2020-12-24] MEDS ORDERED: Phenytoin 100 MG Cap.ER PO STA (18:13)
--- NOTE | 2020-12-24 18:22 | CT ---
Indication: Pt had seizure today. Hx of seizures. Technique: CT of the head without contrast. Coronal and sagittal reformats. Bone and soft tissue windows. Comparison: 04/30/2019 CT Findings: No acute intracranial hemorrhage or extra-axial collection. No evidence of acute cortical infarction. No mass effect or midline shift. Normal cerebral volume. The ventricles are normal in size, shape and contour. There is normal abraham and white matter differentiation. The orbital contents are normal. No calvarial fractures. No lytic or sclerotic osseous lesions within the calvarium or skull base. Scalp and other imaged soft tissue structures are normal. Mastoid air cells are clear. Paranasal sinuses are well aerated. Mild left frontal scalp swelling. Impression: No acute intracranial abnormality. Mild left frontal scalp swelling. Please note that all CT scans at this facility use dose modulation, iterative reconstruction, and/or weight-based dosing when appropriate to reduce radiation dose to as low as reasonably achievable. Dictated by Emmanuel Chao MD @ 12/24/2020 6:21:[address] Emmanuel Chao @ Dec 24 2020 6:21PM
--- NOTE | 2020-12-24 18:35 | EDM.PDOC ---
ED HPI GENERAL MEDICAL PROBLEM - General Chief Complaint: Neurological Problem Stated Complaint: SEIZURE Time Seen by Provider: 12/24/20 16:23 - History of Present Illness INITIAL COMMENTS - FREE TEXT/NARRATIVE: CHIEF COMPLAINT(S): "I had another seizure earlier." HISTORY OF PRESENT ILLNESS: This is a 30-year-old woman in with a past medical history of seizure disorder who is currently not any home medication who comes to the emergency department with a chief complaint of "I had another seizure earlier." The patient states that prior to arrival she had another seizure. She states that this was described to her by her friend who was in presence. She states that at that time she had a 2.5-minute generalized tonic-clonic seizure but did not lose any urine but did bite the right side of her tongue. She states that she recently had another seizure last Monday lasting approximately 5 to 6 minutes where she fell and hit her face and has multiple abrasions. She denies any other head injury or loss of consciousness. She denies any use of anticoagulation. She states that after her discharge last time she called Dr. Lockett and made an appointment and has it in approximately 4 days. She states that she has been having trouble keeping her sugar up. She states that it has been in the 78-80 range. She denies any insulin usage or history of diabetes mellitus. She states that she bought a glucometer to check her sugars. She states that the only symptom she is currently having is some tiredness and some headache located on the front of her head without any blurry vision, numbness, tingling, or weakness. REVIEW OF SYSTEMS: Constitutional: Denies fever, chills. Eyes: Denies eye pain Ears, Nose, Mouth, & Throat: Denies earache Cardiovascular: Denies chest pain Respiratory: Denies shortness of breath Gastrointestinal: Denies Nausea, vomiting, diarrhea, hematochezia. Genitourinary: Denies hematuria Skin:Denies a rash MSK: Denies joint pain Neurological: Positive for headache and seizure. Denies blurred vision, numbness, tingling, weakness Psychiatric: Denies depression PAST MEDICAL HISTORY: As per history of present illness and as reviewed below otherwise noncontributory. SURGICAL HISTORY: As per history of present illness and as reviewed below otherwise noncontributory. SOCIAL HISTORY: As per history of present illness and as reviewed below otherwise noncontributory. FAMILY HISTORY: As per history of present illness and as reviewed below otherwise noncontributory. EXAMINATION OF ORGAN SYSTEMS/BODY AREAS: Constitutional: Blood pressure is 138/86, heart rate 87, respiratory 16 with an oxygen saturation 9 9% on room air. Temperature 36.6 General: Young woman who does not appear to be in acute distress. Psychiatric: Appropriate mood and affect. Eyes: No scleral icterus or conjunctival erythema pupils are equal round reactive to light. Extraocular movements intact. There is mild left periorbital swelling and an abrasion to the anterior portion of the patient's scalp that appears to be well-healing. ENMT: Moist mucous membranes. No pharyngeal erythema there is a small tongue laceration to the right side of the patient's tongue without any active bleeding. Cardiovascular: Regular, rate, and rhythm. No gallops, murmurs, or rubs. Bilateral upper extremity pulses symmetric and intact. No peripheral edema. No JVD. Respiratory: Lungs clear to auscultation bilaterally. No wheezes, rales, or rhonchi. Gastrointestinal: Soft, non-tender, non-distended. Normoactive bowel sounds Genitourinary: No suprapubic tenderness Musculoskeletal: Normal range of motion. Skin: No lesions or abrasions. Neurological: Alert, GCS 15 strength and sensation grossly intact in upper and lower extremities bilaterally. MEDICAL DECISION MAKING AND COURSE IN THE ED WITH INTERPRETATION/REVIEW OF DIAGNOSTIC STUDIES: This is a 30-year-old woman with a past medical history of seizure disorder who is currently not on any medication who comes to the emergency department with second seizure within 1 week who overall appears well. At this time will obtain basic labs and a CT head without contrast given the periorbital ecchymosis. Ajnlg-ok-[id number] glucose was 100. I did review the patient's chart and she has been seen by our neurologist and and 2019 there is a document stating that she had seizures when she was little described as focal and then in 2008 states she started to have gradual worsening seizures that last about 3 to 4 minutes. Per the record the patient has been on Keppra which caused some side effects and that was changed to Topamax and Vimpat. After reviewing the patient's chart I did have a discussion with the patient. She states that Keppra caused significant side effects and she stopped taking Topamax and Vimpat secondary to them not working. She states that she has been on many medications which do not seem to help but cannot recall other names of the medications. I did discuss with her that I would like to start her on a medication however I would need to speak to a neurologist. Given that our neurologist is not on-call I did contact [facility] in [place] and spoke with Dr. Young. Based on her limited history we did decided that Dilantin 100 mg 3 times a day is a good place to start until she follows up with your neurologist. I did discuss with the patient and she was amenable to this plan. Repeat pxqxq-in-hyhu glucose was 76. Laboratory: CBC is unremarkable. BMP unremarkable. Hyperglycemia at 109. The radiological images were viewed by myself along with reading the report from the radiologist. CT head without contrast does not reveal any acute intracranial abnormality. Patient's repeat bedside glucose continued to remain stable and the patient did not have any further seizures. At this time given that she has an outpatient appointment scheduled the patient is stable for discharge. She is to continue taking Dilantin until follow-up in discussion with neurology. She was amenable to this plan. She was given strict return precautions. She was amenable to discharge and had no further questions DISPOSITION: The patient was discharged home in stable condition. The patient will follow up with [facility] - Neurology [address], [address] [place] [address] At her scheduled appointment CONDITION: Fair PROCEDURES: None FINAL IMPRESSION(S)/DIAGNOSES: 1. Acute breakthrough seizure likely secondary to no baseline medication administration Mina Flowers M.D. general Pain Score (Numeric/FACES): 6 - Related Data Allergies Allergy/AdvReac Type Severity Reaction Status Date / Time iodine Allergy Swelling Verified 12/24/20 16:27 latex Allergy Hives Verified 12/24/20 16:27 Penicillins Allergy Anaphylactic Verified 12/24/20 16:27 Shock Home Meds: Home Meds Topiramate [Topamax] 100 mg PO BID 09/29/18 [History] Amitriptyline [Elavil] 20 mg PO DAILY 04/17/20 [History] Diclofenac Submicronized [Diclofenac] 75 mg PO BID 12/24/20 [History] Phenytoin Sodium Extended [Dilantin] 100 mg PO TID #21 capsule 12/24/20 [Rx] Past Medical History HEENT History: Reports: Impaired Vision Other HEENT History: wears glasses Cardiovascular History: Reports: None Respiratory History: Reports: None Gastrointestinal History: Reports: Bowel Obstruction Genitourinary History: Reports: None RISK OFFICER History: Reports: None Musculoskeletal History: Reports: Fracture Neurological History: Reports: Migraines, Seizure, Other (See Below) Other Neuro History: epilepsy Psychiatric History: Reports: Depression Endocrine/Metabolic History: Reports: None Hematologic History: Reports: None Immunologic History: Reports: None Oncologic (Cancer) History: Reports: None Dermatologic History: Reports: None - Infectious Disease History Infectious Disease History: Reports: None - Past Surgical History Head Surgeries/Procedures: Reports: None GI Surgical History: Reports: Cholecystectomy Musculoskeletal Surgical History: Reports: Other (See Below) Other Musculoskeletal Surgeries/Procedures:: ankle surgery; foot sx Social & Family History - Family History Family Medical History: No Pertinent Family History - Caffeine Use Caffeine Use: Reports: None - Recreational Drug Use Recreational Drug Use: Yes Recreational Drug Type: Reports: Marijuana/Hashish ED ROS GENERAL - Review of Systems Review Of Systems: See Below ED EXAM, GENERAL - Physical Exam Exam: See Below Course - Vital Signs Last Recorded V/S: Last Vital Signs Temp 36.6 C 12/24/20 19:00 Pulse 79 12/24/20 19:00 Resp 16 12/24/20 19:00 BP 133/71 12/24/20 19:00 Pulse Ox 100 12/24/20 19:00 - Orders/Labs/Meds Labs: Laboratory Tests 12/24/20 12/24/20 12/24/20 Range/Units 16:20 16:20 16:22 WBC 7.47 (4.0-11.0) K/uL RBC 4.22 L (4.30-5.90) M/uL Hgb 13.0 (12.0-16.0) g/dL Hct 39.4 (36.0-46.0) % MCV 93.4 (80.0-98.0) fL MCH 30.8 (27.0-32.0) pg MCHC 33.0 (31.0-37.0) g/dL RDW Std Deviation 42.9 (28.0-62.0) fl RDW Coeff of Scot 13 (11.0-15.0) % Plt Count 316 (150-400) K/uL MPV 10.20 (7.40-12.00) fL Neut % (Auto) 76.8 (48.0-80.0) % Lymph % (Auto) 16.2 (16.0-40.0) % [place] % (Auto) 5.4 (0.0-15.0) % Eos % (Auto) 1.3 (0.0-7.0) % Baso % (Auto) 0.3 (0.0-1.5) % Neut # (Auto) 5.7 (1.4-5.7) K/uL Lymph # (Auto) 1.2 (0.6-2.4) K/uL [place] # (Auto) 0.4 (0.0-0.8) K/uL Eos # (Auto) 0.1 (0.0-0.7) K/uL Baso # (Auto) 0.0 (0.0-0.1) K/uL Nucleated RBC % 0.0 /100WBC Nucleated RBCs # 0 K/uL Sodium 142 (136-145) mmol/L Potassium 3.7 (3.5-5.1) mmol/L Chloride 106 (98-107) mmol/L Carbon Dioxide 25.6 (21.0-32.0) mmol/L BUN 13 (7.0-18.0) mg/dL Creatinine 0.6 (0.6-1.0) mg/dL Est Cr Clr Drug Dosing 135.79 mL/min Estimated GFR (MDRD) > 60.0 ml/min Glucose 109 H (74-106) mg/dL POC Glucose 100 H (70-99) mg/dL Calcium 8.5 (8.5-10.1) mg/dL 12/24/20 12/24/20 Range/Units 18:01 18:57 WBC (4.0-11.0) K/uL RBC (4.30-5.90) M/uL Hgb (12.0-16.0) g/dL Hct (36.0-46.0) % MCV (80.0-98.0) fL MCH (27.0-32.0) pg MCHC (31.0-37.0) g/dL RDW Std Deviation (28.0-62.0) fl RDW Coeff of Scot (11.0-15.0) % Plt Count (150-400) K/uL MPV (7.40-12.00) fL Neut % (Auto) (48.0-80.0) % Lymph % (Auto) (16.0-40.0) % [place] % (Auto) (0.0-15.0) % Eos % (Auto) (0.0-7.0) % Baso % (Auto) (0.0-1.5) % Neut # (Auto) (1.4-5.7) K/uL Lymph # (Auto) (0.6-2.4) K/uL [place] # (Auto) (0.0-0.8) K/uL Eos # (Auto) (0.0-0.7) K/uL Baso # (Auto) (0.0-0.1) K/uL Nucleated RBC % /100WBC Nucleated RBCs # K/uL Sodium (136-145) mmol/L Potassium (3.5-5.1) mmol/L Chloride (98-107) mmol/L Carbon Dioxide (21.0-32.0) mmol/L BUN (7.0-18.0) mg/dL Creatinine (0.6-1.0) mg/dL Est Cr Clr Drug Dosing mL/min Estimated GFR (MDRD) ml/min Glucose (74-106) mg/dL POC Glucose 76 84 (70-99) mg/dL Calcium (8.5-10.1) mg/dL Meds: Medications Discontinued Medications Generic Name Dose Route Start Last Admin Trade Name Freq PRN Reason Stop Dose Admin Phenytoin Sodium 100 mg 12/24/20 18:13 12/24/20 18:32 Phenytoin 100 Mg Cap.Er PO 12/24/20 18:14 100 mg ONETIME STA Administration Departure - Departure Time of Disposition: 19:03 Disposition: Home, Self-Care 01 Condition: Fair Clinical Impression: Seizure - Discharge Information *PRESCRIPTION DRUG MONITORING PROGRAM REVIEWED*: No *COPY OF PRESCRIPTION DRUG MONITORING REPORT IN PATIENT SHILPA: No Prescriptions: Phenytoin Sodium Extended [Dilantin] 100 mg PO TID #21 capsule Instructions: Seizure, Adult, [id number] Referrals: Faye Ferreira PA [Primary Care Provider] - Shilpi Lockett MD [Physician] - Forms: ED Department Discharge Additional Instructions: At this time your evaluated on an emergent basis in the emergency department. Given your seizure history it is important that you continue to take medication to control the seizures. I do recommend that you keep your neurology appointment on Monday. If you have any further seizures or more frequent seizures that last longer duration I would like you to return to the emergency department. [facility] - Primary Care [address] [place] [id number] [address] The patient is informed of any results of their evaluation and diagnostic workup and all questions are answered. They are given discharge instructions and return precautions. The patient is stable for discharge. The patient states they understand and agree with the plan and that they will return if their symptoms get worse or if they have any new concerns. The following information is given to patients seen in the emergency department who are being discharged to home. This information is to outline your options for follow-up care. We provide all patients seen in our emergency department with a follow-up referral. The need for follow-up, as well as the timing and circumstances, are variable depending upon the specifics of your emergency department visit. If you don't have a primary care physician on staff, we will provide you with a referral. We always advise you to contact your personal physician following an emergency department visit to inform them of the circumstance of the visit and for follow-up with them and/or the need for any referrals to a consulting specialist. The emergency department will also refer you to a specialist when appropriate. This referral assures that you have the opportunity for follow-up care with a specialist. All of these measure are taken in an effort to provide you with optimal care, which includes your follow-up. Under all circumstances we always encourage you to contact your private physician who remains a resource for coordinating your care. When calling for follow-up care, please make the office aware that this follow-up is from your recent emergency room visit. If for any reason you are refused follow-up, please contact the [facility] Emergency Department at and asked to speak to the emergency department charge nurse. Sepsis Event Note (ED) - Evaluation Sepsis Screening Result: No Definite Risk
--- NOTE | 2020-12-25 17:12 | PCM.EKG ---
#1 Interpretation EKG Date: 12/24/20 Time: 16:22 Rhythm: NSR Rate (Beats/Min): 82 [place]: Normal P-Wave: Present QRS: Normal ST-T: Normal QT: Normal Comparison: No Change (04/30/19) EKG Interpretation Comments: Sinus Rhythm
== END 2020-12-24 19:00 | disposition home or self-care (01) ==
LOC: MW.ED 16:10
DX: R56.9 Unspecified convulsions (principal); Z88.0 Allergy status to penicillin; Z91.040 Latex allergy status; Z79.899 Other long term (current) drug therapy; Z91.09 Other allergy status, other than to drugs and biological substances
CPT/HCPCS: 36415; 70450; 80048; 82947; 85025; 93005; 99284; A9270; 99283

== ENCOUNTER 2020-12-31 19:38 | Emergency (ER) | payer OTHER ==
[2020-12-31] MEDS ORDERED: Sodium Chloride 0.9% 10 ML Syringe FLUSH PRN (20:11)
[2020-12-31] MEDS ORDERED: Sodium Chloride 0.9% 2.5 ML Syringe FLUSH PRN (20:11)
[2020-12-31] MEDS ORDERED: Ondansetron 4 MG/2 ML SDV IVPUSH ONE ×2 (20:11→22:49)
[2020-12-31] MEDS ORDERED: Sodium Chloride 0.9% 1,000 ML IV ONE ×2 (20:11→21:50)
--- NOTE | 2020-12-31 20:17 | EDM.PDOC ---
ED HPI GENERAL MEDICAL PROBLEM - General Chief Complaint: General Stated Complaint: SEIZURE Time Seen by Provider: 12/31/20 20:03 - History of Present Illness INITIAL COMMENTS - FREE TEXT/NARRATIVE: HISTORY AND PHYSICAL: History of present illness: This is a 30-year-old female with a history significant for seizure disorder in the past who has been seen here twice in the last couple weeks secondary to seizures who presents ER today secondary to nausea and vomiting that she believes started ever since she was started on her new antiseizure medication, Dilantin. Patient reports that she has been on Keppra, Topamax and Vimpat in the past and is felt that they have either caused severe side effects or have been ineffective and so she is stopped taking medications. Patient also reports that she was on Dilantin in the distant past and is not sure why but for some reason it was decided that she should not be on that anymore because it was ineffective for her. Patient was seen in the ER here last week and after consultation with neurology at [facility], it was decided that the patient would benefit from being started back on Dilantin 100 mg 3 times a day. Patient was seen by her neurologist yesterday and labs were ordered however no Dilantin level is obtainable at this time in the computer system. Patient reports that ever since she got started on the Dilantin has been having episodes of vomiting after eating. Patient reports that today while she was at work she was hungry and ordered taco [employer] through [employer] after eating her taco and fries she started having episodes of abdominal cramping and vomiting. Patient is status post a cholecystectomy in the past. Patient denies any recent fevers, shakes, chills, diarrhea, dysuria, frequency, urgency, chest pain, shortness of breath, abdominal discomfort other than when she is having episodes of emesis. Patient reports that she is sexually active but her last menstrual period was 2 days ago. Patient denies any recent head trauma other than the occurrence 2 weeks ago that she was evaluated for here in the ED. Patient had a CT scan of her head to her last ER visit which was unremarkable. Review of systems: As per history of present illness and below otherwise all systems reviewed and negative. Past medical history: As per history of present illness and as reviewed below otherwise noncontributory. Surgical history: As per history of present illness and as reviewed below otherwise noncontributory. Social history: No reported history of drug or alcohol abuse. Family history: As per history of present illness and as reviewed below otherwise noncontributory. Physical exam: This patient was seen and evaluated during the 2019 SARS-CoV-2 novel coronavirus pandemic period. Community viral transmission is ongoing at time of this encounter and the emergency department is operating under pandemic response procedures. Constitutional: Patient is oriented to person, place, and time. Appears well- developed and well-nourished. No distress. HEENT: Moist mucous membranes Head: Normocephalic and atraumatic Eyes: Right eye exhibits no discharge. Left eye exhibits no discharge. No scleral icterus Neck: Normal range of motion. No tracheal deviation present. Cardiovascular: Normal rate and regular rhythm. Pulmonary: Effort normal, no respiratory distress. Abdominal: No distention Musculoskeletal: Normal range of motion Neurologic: Alert and oriented to person, place and time. Skin: [place], warm and dry. Psychiatric: Normal mood and affect. Behavior is normal. Judgment and thought content normal. Nursing note and vital signs have been reviewed Neuro: A&Ox3. Cranial nerves II-XII grossly intact, 5/5 strength to bilateral upper and lower extremities, sensation intact to bilateral upper and lower extremities, no nystagmus, PERRLA, EOMI, normal speech, proprioception intact to bilateral lower extremities, normal finger to nose test, gait normal Abd: Soft, nondistended, no rebound/guarding, no psoas or obturator signs, no tenderness at Mcberney's point, no Simpson's sign. Pt does not present with an exam that would be consistent with an acute surgical abdomen at this time, nontender to palpation Diagnostics: CBC, CMP, lipase, UA, urine Therapeutics: NSS x1 L, Zofran 4 mg IV Assessment and plan: 30-year-old female who presents ER today secondary to nausea and vomiting after eating. Patient relates her vomiting to initiating phenytoin. Patient will have her labs checked including a Dilantin level here. Patient will be given Zofran and IV fluids for rehydration. Patient is clinically hemodynamically stable at this time. Will reevaluate after labs and IV fluids. Patient is clinically hemodynamically stable. Patient received 2 L normal saline and feels much improved. Patient reports she feels much better with regards to her nausea. Patient be discharged home with instructions to call her neurologist in the morning regarding instructions about her Dilantin. Reassessment at the time of disposition demonstrates that the patient is in no acute distress. The patient has remained stable throughout the entire ED visit and is without objective evidence for acute process requiring urgent intervention or hospitalization. The patient is stable for discharge, counseling is provided as documented above, discussed symptomatic treatment and specific conditions for return. I have spoken with the patient/caregiver and discussed todays findings, in addition to providing specific details for the plan of care. Questions are answered and there is agreement with the plan. Definitive disposition and diagnosis as appropriate pending reevaluation and review of above. - Related Data Allergies Allergy/AdvReac Type Severity Reaction Status Date / Time iodine Allergy Swelling Verified 12/31/20 20:09 latex Allergy Hives Verified 12/31/20 20:09 Penicillins Allergy Anaphylactic Verified 12/31/20 20:09 Shock Home Meds: Home Meds Amitriptyline [Elavil] 20 mg PO ASDIRECTED PRN 04/17/20 [History] Diclofenac Submicronized [Diclofenac] 75 mg PO BID 12/24/20 [History] Ondansetron [Zofran ODT] 4 mg PO Q6H PRN #12 tab.dis 12/31/20 [Rx] Phenytoin Sodium Extended [Dilantin] 300 mg PO ASDIRECTED 12/31/20 [History] Past Medical History HEENT History: Reports: Impaired Vision Other HEENT History: wears glasses Cardiovascular History: Reports: None Respiratory History: Reports: None Gastrointestinal History: Reports: Bowel Obstruction Genitourinary History: Reports: None PREPARER SAMPLES AND REPAIRS History: Reports: None Musculoskeletal History: Reports: Fracture Neurological History: Reports: Migraines, Seizure, Other (See Below) Other Neuro History: epilepsy Psychiatric History: Reports: Depression Endocrine/Metabolic History: Reports: None Hematologic History: Reports: None Immunologic History: Reports: None Oncologic (Cancer) History: Reports: None Dermatologic History: Reports: None - Infectious Disease History Infectious Disease History: Reports: None - Past Surgical History Head Surgeries/Procedures: Reports: None GI Surgical History: Reports: Cholecystectomy Musculoskeletal Surgical History: Reports: Other (See Below) Other Musculoskeletal Surgeries/Procedures:: ankle surgery; foot sx Social & Family History - Family History Family Medical History: No Pertinent Family History - Caffeine Use Caffeine Use: Reports: None ED ROS GENERAL - Review of Systems Review Of Systems: See Below ED EXAM, GENERAL - Physical Exam Exam: See Below Course - Vital Signs Last Recorded V/S: Last Vital Signs Temp 97.8 F 12/31/20 20:06 Pulse 88 12/31/20 20:06 Resp 16 12/31/20 20:06 BP 143/81 H 12/31/20 20:06 Pulse Ox 100 12/31/20 20:06 - Orders/Labs/Meds Orders: Active Orders 24 hr Category Date Time Status HCG QUALITATIVE,URINE [URCHEM] Stat Lab 12/31/20 20:11 Ordered UA W/MARY RFLX IF INDICATED [URIN] Stat Lab 12/31/20 20:11 Ordered Sodium Chloride 0.9% [Saline Flush] Med 12/31/20 20:11 Active 10 ml FLUSH ASDIRECTED PRN Sodium Chloride 0.9% [Saline Flush] Med 12/31/20 20:11 Active 2.5 ml FLUSH ASDIRECTED PRN Saline Lock Insert [OM.PC] Stat Oth 12/31/20 20:11 Ordered Medication Orders Sodium Chloride (Sodium Chloride 0.9% 10 Ml Syringe) 10 ml FLUSH ASDIRECTED PRN PRN Reason: Keep Vein Open Last Admin: 12/31/20 20:23 Dose: 10 ml Documented by: LIZANDRO Sodium Chloride (Sodium Chloride 0.9% 2.5 Ml Syringe) 2.5 ml FLUSH ASDIRECTED PRN PRN Reason: Keep Vein Open Last Admin: 12/31/20 20:23 Dose: 2.5 ml Documented by: LIZANDRO Labs: Laboratory Tests 12/31/20 12/31/20 Range/Units 20:23 20:23 WBC 6.53 (4.0-11.0) K/uL RBC 4.26 L (4.30-5.90) M/uL Hgb 12.9 (12.0-16.0) g/dL Hct 39.7 (36.0-46.0) % MCV 93.2 (80.0-98.0) fL MCH 30.3 (27.0-32.0) pg MCHC 32.5 (31.0-37.0) g/dL RDW Std Deviation 41.7 (28.0-62.0) fl RDW Coeff of Scot 12 (11.0-15.0) % Plt Count 321 (150-400) K/uL MPV 10.00 (7.40-12.00) fL Neut % (Auto) 65.6 (48.0-80.0) % Lymph % (Auto) 25.4 (16.0-40.0) % Barry % (Auto) 6.7 (0.0-15.0) % Eos % (Auto) 1.8 (0.0-7.0) % Baso % (Auto) 0.5 (0.0-1.5) % Neut # (Auto) 4.3 (1.4-5.7) K/uL Lymph # (Auto) 1.7 (0.6-2.4) K/uL Barry # (Auto) 0.4 (0.0-0.8) K/uL Eos # (Auto) 0.1 (0.0-0.7) K/uL Baso # (Auto) 0.0 (0.0-0.1) K/uL Nucleated RBC % 0.0 /100WBC Nucleated RBCs # 0 K/uL Sodium 143 (136-145) mmol/L Potassium 3.9 (3.5-5.1) mmol/L Chloride 105 (98-107) mmol/L Carbon Dioxide 25.8 (21.0-32.0) mmol/L BUN 13 (7.0-18.0) mg/dL Creatinine 0.9 (0.6-1.0) mg/dL Est Cr Clr Drug Dosing TNP Estimated GFR (MDRD) > 60.0 ml/min Glucose 87 (74-106) mg/dL Calcium 8.3 L (8.5-10.1) mg/dL Total Bilirubin 0.2 (0.2-1.0) mg/dL AST 13 L (15-37) IU/L ALT 26 (14-63) IU/L Alkaline Phosphatase 116 (46-116) U/L Total Protein 6.8 (6.4-8.2) g/dL Albumin 3.8 (3.4-5.0) g/dL Globulin 3.0 (2.6-4.0) g/dL Albumin/Globulin Ratio 1.3 (0.9-1.6) Lipase 53 L (73-393) U/L Meds: Medications Generic Name Dose Route Start Last Admin Trade Name Heather PRN Reason Stop Dose Admin Sodium Chloride 10 ml 12/31/20 20:11 12/31/20 20:23 Sodium Chloride 0.9% 10 Ml Syringe FLUSH 10 ml ASDIRECTED PRN Administration Keep Vein Open Sodium Chloride 2.5 ml 12/31/20 20:11 12/31/20 20:23 Sodium Chloride 0.9% 2.5 Ml Syringe FLUSH 2.5 ml ASDIRECTED PRN Administration Keep Vein Open Discontinued Medications Generic Name Dose Route Start Last Admin Trade Name Heather PRN Reason Stop Dose Admin Sodium Chloride 1,000 mls @ 999 mls/hr 12/31/20 20:11 12/31/20 20:22 Normal Saline IV 12/31/20 21:11 999 mls/hr .Bolus ONE Administration Sodium Chloride 1,000 mls @ 999 mls/hr 12/31/20 21:50 12/31/20 21:54 Normal Saline IV 12/31/20 22:50 999 mls/hr .Bolus ONE Administration Ketorolac Tromethamine 30 mg 12/31/20 22:49 12/31/20 23:01 Ketorolac 30 Mg/Ml Sdv IVPUSH 12/31/20 22:50 30 mg ONETIME ONE Administration Ondansetron HCl 4 mg 12/31/20 20:11 12/31/20 20:23 Ondansetron 4 Mg/2 Ml Sdv IVPUSH 12/31/20 20:12 4 mg ONETIME ONE Administration Ondansetron HCl 4 mg 12/31/20 22:49 12/31/20 23:01 Ondansetron 4 Mg/2 Ml Sdv IVPUSH 12/31/20 22:50 4 mg ONETIME ONE Administration Departure - Departure Time of Disposition: 23:14 Disposition: Home, Self-Care 01 Condition: Good (Nausea vomiting) Clinical Impression: Nausea & vomiting Qualifiers: Vomiting type: unspecified Vomiting Intractability: non-intractable Qualified Code(s): R11.2 - Nausea with vomiting, unspecified - Discharge Information Instructions: Nausea and Vomiting, Adult Referrals: Faye Ferreira PA [Primary Care Provider] - Forms: ED Department Discharge Additional Instructions: You were seen in the ER today secondary to episodes of nausea and vomiting which may be related to your Dilantin. Please call your doctor in the morning so they can help you with aging her Dilantin to see if your level was elevated that they amanda yesterday. You will be given a prescription for Zofran to take in addition to the Phenergan that you are ready taken for her migraines. This will help your nausea when you take your Dilantin. The following information is given to patients seen in the emergency department who are being discharged to home. This information is to outline your options for follow-up care. We provide all patients seen in our emergency department with a follow-up referral. The need for follow-up, as well as the timing and circumstances, are variable depending upon the specifics of your emergency department visit. If you don't have a primary care physician on staff, we will provide you with a referral. We always advise you to contact your personal physician following an emergency department visit to inform them of the circumstance of the visit and for follow-up with them and/or the need for any referrals to a consulting specialist. The emergency department will also refer you to a specialist when appropriate. This referral assures that you have the opportunity for follow-up care with a specialist. All of these measure are taken in an effort to provide you with optimal care, which includes your follow-up. Under all circumstances we always encourage you to contact your private physician who remains a resource for coordinating your care. When calling for follow-up care, please make the office aware that this follow-up is from your recent emergency room visit. If for any reason you are refused follow-up, please contact the [facility] Emergency Department at and asked to speak to the emergency department charge nurse. [facility] - Primary Care [address] [place] [id number] [id number] Sepsis Event Note (ED) - Evaluation Sepsis Screening Result: No Definite Risk - Focused Exam Vital Signs: Vital Signs Temp Pulse Resp BP Pulse Ox 12/31/20 20:06 97.8 F 88 16 143/81 H 100 - My Orders Last 24 Hours: My Active Orders 12/31/20 20:11 HCG QUALITATIVE,URINE [URCHEM] Stat UA W/MARY RFLX IF INDICATED [URIN] Stat Sodium Chloride 0.9% [Saline Flush] 10 ml FLUSH ASDIRECTED PRN Sodium Chloride 0.9% [Saline Flush] 2.5 ml FLUSH ASDIRECTED PRN Saline Lock Insert [OM.PC] Stat - Assessment/Plan Last 24 Hours: My Active Orders 12/31/20 20:11 HCG QUALITATIVE,URINE [URCHEM] Stat UA W/MARY RFLX IF INDICATED [URIN] Stat Sodium Chloride 0.9% [Saline Flush] 10 ml FLUSH ASDIRECTED PRN Sodium Chloride 0.9% [Saline Flush] 2.5 ml FLUSH ASDIRECTED PRN Saline Lock Insert [OM.PC] Stat
[2020-12-31 20:57] LABS: BLOOD UREA NITROGEN,BUN 13 mg/dL (7.0-18.0); CARBON DIOXIDE,CO2 25.8 mmol/L (21.0-32.0); CHLORIDE,CL 105 mmol/L (98-107); GLUCOSE RANDOM 87 mg/dL (74-106); LIPASE 53 U/L (73-393); POTASSIUM,K 3.9 mmol/L (3.5-5.1); SODIUM,NA 143 mmol/L (136-145)
[2020-12-31] MEDS ORDERED: Ketorolac 30 MG/ML SDV IVPUSH ONE (22:49)
== END 2020-12-31 23:26 | disposition home or self-care (01) ==
LOC: MW.ED 19:38
DX: R11.2 Nausea with vomiting, unspecified (principal); Z91.040 Latex allergy status; Z88.0 Allergy status to penicillin; Z91.041 Radiographic dye allergy status
CPT/HCPCS: 36415; 80053; 83690; 85025; 96374; 96375; 96376; 99284; J1885; J2405; J7030; 99283

== ENCOUNTER 2022-07-29 23:31 | Emergency (ER) | payer OTHER | END 2022-07-30 00:21 | disposition left against medical advice (07) | LOC: MW.ED 23:31 | DX: Z53.21 Procedure and treatment not carried out due to patient leaving prior to being seen by health care provider (principal) ==

== ENCOUNTER 2022-07-30 00:39 | Emergency (ER) | payer OTHER ==
[2022-07-30] MEDS ORDERED: Acetaminophen 325 MG Tab PO ONE (03:26)
[2022-07-30] MEDS ORDERED: Ibuprofen 400 MG Tab PO ONE (03:26)
== END 2022-07-30 04:57 | disposition home or self-care (01) ==
LOC: MW.ED 00:39
DX: M25.571 Pain in right ankle and joints of right foot (principal); Z88.0 Allergy status to penicillin; Z91.040 Latex allergy status; Z91.041 Radiographic dye allergy status
CPT/HCPCS: 73610-26-RT; 73610-RT; 73620-26-RT; 73620-RT; 99283

== ENCOUNTER 2022-11-23 15:41 | Emergency (ER) | payer SELFPAY ==
[2022-11-23 16:26] LABS: BLOOD UREA NITROGEN,BUN 12 mg/dL (7.0-18.0); CARBON DIOXIDE,CO2 25.1 mmol/L (21.0-32.0); CHLORIDE,CL 104 mmol/L (98-107); GLUCOSE RANDOM 88 mg/dL (74-106); LIPASE 61 U/L (73-393); SODIUM,NA 139 mmol/L (136-145)
[2022-11-23 16:27] LABS: ESTIMATED GFR 121 mL/min (>60)
[2022-11-23] MEDS ORDERED: Sodium Chloride 0.9% 2.5 ML Syringe FLUSH PRN (20:19)
[2022-11-23] MEDS ORDERED: Promethazine 25 MG/ML SDV IM ONE (20:19)
[2022-11-23] MEDS ORDERED: Sodium Chloride 0.9% 1,000 ML IV ONE (20:19)
[2022-11-23] MEDS ORDERED: Sodium Chloride 0.9% 10 ML Syringe FLUSH PRN (20:19)
== END 2022-11-23 22:00 | disposition home or self-care (01) ==
LOC: MW.ED 15:41
DX: R10.32 Left lower quadrant pain (principal); Z91.041 Radiographic dye allergy status; Z91.048 Other nonmedicinal substance allergy status; Z88.0 Allergy status to penicillin
CPT/HCPCS: 36415; 74176; 80053; 81001; 81025; 83690; 85025; 96360; 96372; 99284; J2550; J3490; J7030

== ENCOUNTER 2023-08-26 09:56 | Emergency (ER) | payer OTHER ==
[2023-08-26] MEDS ORDERED: Sodium Chloride 0.9% 1,000 ML IV ONE ×2 (09:57→10:45)
[2023-08-26 10:07] LABS: BASOPHILS ABSOLUTE AUTO 0.04 K/uL (0.00-0.20); BASOPHILS PERCENT AUTO 0.6 % (0.0-1.0); EOSINOPHILS ABSOLUTE AUTO 0.21 K/uL (0.00-0.45); EOSINOPHILS PERCENT AUTO 3.1 % (0.0-6.0); HEMATOCRIT 39.5 % (37.0-47.0); HEMOGLOBIN 13.2 g/dL (12.0-16.0); IMMATURE GRAN ABSOLUTE AUTO 0.01 K/uL (0.00-0.05); IMMATURE GRAN PERCENT AUTO 0.1 % (0.0-0.4); LYMPHOCYTES ABSOLUTE AUTO 2.25 K/uL (1.00-4.80); LYMPHOCYTES PERCENT AUTO 33.4 % (24.0-44.0); MEAN CORPUSCULAR HEMOGLOBIN 30.5 pg (28.0-32.0); MEAN CORPUSCULAR HGB CONC 33.4 g/dL (32.0-36.0); MEAN CORPUSCULAR VOLUME 91.2 fL (83.0-99.0); MEAN PLATELET VOLUME 9.8 fL (9.4-12.3); MONOCYTES ABSOLUTE AUTO 0.43 K/uL (0.00-0.80); MONOCYTES PERCENT AUTO 6.4 % (0.0-8.0); NEUTROPHILS PERCENT AUTO 56.4 % (41.0-71.0); PLATELET COUNT,PLT 281 K/uL (150-400); RED BLOOD CELL COUNT 4.33 M/uL (4.10-5.30); WHITE BLOOD CELL COUNT,WBC 6.74 K/uL (3.9-11.3)
[2023-08-26 10:18] LABS: INR 1.01 (0.86-1.11); PTT,PARTIAL THROMBOPLSTIN TIME 23.2 SEC (23.9-30.7)
[2023-08-26 10:32] LABS: A/G RATIO 1.1 (0.9-1.6); ALANINE AMINOTRANSFERASE,ALT 21 IU/L (14-63); ALBUMIN 3.5 g/dL (3.4-5.0); ALKALINE PHOSPHATASE 91 U/L (46-116); ASPARTATE AMNIOTRANSFERASE,AST 19 IU/L (15-37); BILIRUBIN TOTAL 0.5 mg/dL (0.2-1.0); BLOOD UREA NITROGEN,BUN 18 mg/dL (7.0-18.0); CALCIUM 8.7 mg/dL (8.5-10.1); CARBON DIOXIDE,CO2 18.7 mmol/L (21.0-32.0); CHLORIDE,CL 104 mmol/L (98-107); EST CRCL DRUG DOSING (CG) 74.21 mL/min; ETHANOL BLOOD MEDICAL <3 mg/dL; GLUCOSE RANDOM 123 mg/dL (74-106); LIPASE 26 U/L (16-77); MAGNESIUM 1.9 mg/dL (1.8-2.4); POTASSIUM,K 3.7 mmol/L (3.5-5.1); PROTEIN TOTAL,TP 6.6 g/dL (6.4-8.2); SODIUM,NA 140 mmol/L (136-145)
[2023-08-26] MEDS ORDERED: Iopamidol 755 MG/ML 500 ML Multipack Bottle IVPUSH STA (10:32)
[2023-08-26 10:33] LABS: ESTIMATED GFR 76 mL/min (>60)
[2023-08-26 10:35] LABS: LACTIC ACID 6.7 mmol/L (0.4-2.0)
[2023-08-26] MEDS ORDERED: Ondansetron 4 MG/2 ML SDV IVPUSH ONE (11:05)
[2023-08-26] MEDS ORDERED: Morphine 4 MG/ML Syringe IVPUSH ONE (11:05)
[2023-08-26 11:15] LABS: APPEARANCE,URINE SLT CLOUDY; BILIRUBIN,URINE NEGATIVE (NEGATIVE); COLOR,URINE YELLOW; GLUCOSE,URINE NEGATIVE (NEGATIVE); KETONES,URINE NEGATIVE (NEGATIVE); LEUKOCYTE ESTERASE,URINE NEGATIVE (NEGATIVE); NITRITE,URINE NEGATIVE (NEGATIVE); OCCULT BLOOD,URINE SMALL (NEGATIVE); PH,URINE 6.5 (5.0-8.0); PROTEIN,URINE NEGATIVE (NEGATIVE); UROBILINOGEN,URINE 0.2 EU/dL (<2.0)
[2023-08-26 11:25] LABS: AMPHETAMINES SCREEN, URINE NEGATIVE (CUTOFF=500); BARBITURATE SCREEN,URINE NEGATIVE (CUTOFF=200); BENZODIAZEPINES SCREEN,URINE NEGATIVE (CUTOFF=150); BUPRENORPHINE SCREEN,URINE NEGATIVE (CUTOFF=10); METHADONE SCREEN, URINE NEGATIVE (CUTOFF=200); METHAMPHETAMINES SCREEN, URINE NEGATIVE (CUTOFF=500); OXYCODONE SCREEN,URINE NEGATIVE (CUT0FF=100); PCP SCREEN,URINE NEGATIVE (CUTOFF=25); THC SCREEN,URINE 20 NG/ML PRESUMPTIVE POSITIVE (CUTOFF=50)
[2023-08-26 11:29] LABS: BACTERIA,URINE FEW (NEGATIVE); EPITHELIAL CELLS,URINE MANY (NONE-FEW); MUCUS,URINE LIGHT (NONE-MOD); RBC,URINE 0-2 (0-2/HPF); WBC,URINE 0-3 (0-5/HPF)
[2023-08-26] MEDS ORDERED: HYDROmorphone 1 MG/ML Syringe IVPUSH ONE (12:02)
[2023-08-26] MEDS ORDERED: Ketorolac 30 MG/ML SDV IVPUSH ONE (12:04)
== END 2023-08-26 13:00 | disposition home or self-care (01) ==
LOC: MW.ED 09:56
DX: G40.89 Other seizures (principal); V47.5XXA Car driver injured in collision with fixed or stationary object in traffic accident, initial encounter; Z91.040 Latex allergy status; Z88.0 Allergy status to penicillin; Z91.013 Allergy to seafood
CPT/HCPCS: 36415; 70450; 71260; 72125; 74177; 80053; 80305; 80307; 81001; 83605; 83690; 83735; 84484; 84703; 85025; 85610; 85730; 93005; 96361; 96365; 96375; 99285; J1170; J1885; J1953; J2270; J2405; J7030; J7060; Q9967; 72128-26; 72131-26

== ENCOUNTER 2023-10-06 17:45 | Emergency (ER) | payer OTHER ==
[2023-10-06] MEDS: traMADol 50 MG Tab PO ONE (19:59)
[2023-10-06] MEDS: Ibuprofen 600 MG Tab PO ONE (19:59)
== END 2023-10-06 20:07 | disposition home or self-care (01) ==
LOC: MW.ED 17:45
DX: S46.812A Strain of other muscles, fascia and tendons at shoulder and upper arm level, left arm, initial encounter (principal); Z90.49 Acquired absence of other specified parts of digestive tract; Z79.899 Other long term (current) drug therapy; Z88.0 Allergy status to penicillin; Z91.040 Latex allergy status; Z91.013 Allergy to seafood; V87.2XXA Person injured in collision between car and pick-up truck or van (traffic), initial encounter; Y92.410 Unspecified street and highway as the place of occurrence of the external cause
CPT/HCPCS: 73000; 99283; A9270

== ENCOUNTER 2023-12-13 19:43 | Emergency (ER) | payer OTHER ==
[2023-12-13] MEDS: Diphtheria,Pertussis(Acell),Tetanus Vaccine 0.5 ML Syringe IM ONE (20:57)
[2023-12-13] MEDS: Octyl 2-Cyanoacrylate 1 g/1 mL 1 APPLIC PEN TOP ONE (20:57)
== END 2023-12-13 21:07 | disposition home or self-care (01) ==
LOC: MW.ED 19:43
DX: S61.215A Laceration without foreign body of left ring finger without damage to nail, initial encounter (principal); Z75.8 Other problems related to medical facilities and other health care; Z88.0 Allergy status to penicillin; Z91.040 Latex allergy status; Z91.013 Allergy to seafood; Z79.899 Other long term (current) drug therapy; Z90.49 Acquired absence of other specified parts of digestive tract; Z23 Encounter for immunization; W26.0XXA Contact with knife, initial encounter; Y93.89 Activity, other specified; Y99.0 Civilian activity done for income or pay
CPT/HCPCS: 12001; 90471; 90715; 99282; A9270; 99283

== ENCOUNTER 2024-09-24 00:15 | Emergency (ER) | payer SELFPAY ==
[2024-09-24] MEDS: Ketorolac 30 MG/ML SDV IVPUSH ONE (00:59)
[2024-09-24] MEDS: Metoclopramide 10 MG/2 ML SDV IVPUSH ONE (01:00)
[2024-09-24] MEDS: Sodium Chloride 0.9% 1,000 ML IV SCH (01:01)
[2024-09-24] MEDS: Magnesium Sulfate/Water Premix 2 GM in Premix Bag 1 BAG IV ONE (01:01)
== END 2024-09-24 02:05 | disposition home or self-care (01) ==
LOC: MW.ED 00:15
DX: R51.9 Headache, unspecified (principal); Z90.49 Acquired absence of other specified parts of digestive tract; Z88.0 Allergy status to penicillin; Z91.040 Latex allergy status; Z91.013 Allergy to seafood; Z79.899 Other long term (current) drug therapy
CPT/HCPCS: 96365; 96375; 99283; J1100; J1885; J2765; J3475; J7030

== ENCOUNTER 2024-09-25 15:20 | Emergency (ER) | payer SELFPAY ==
[2024-09-25 19:25] LABS: BASOPHILS ABSOLUTE AUTO 0.05 K/uL (0.00-0.20); EOSINOPHILS ABSOLUTE AUTO 0.06 K/uL (0.00-0.45); EOSINOPHILS PERCENT AUTO 1.2 % (0.0-6.0); HEMATOCRIT 40.5 % (37.0-47.0); HEMOGLOBIN 13.6 g/dL (12.0-16.0); IMMATURE GRAN ABSOLUTE AUTO 0.01 K/uL (0.00-0.05); IMMATURE GRAN PERCENT AUTO 0.2 % (0.0-0.4); LYMPHOCYTES ABSOLUTE AUTO 1.75 K/uL (1.00-4.80); LYMPHOCYTES PERCENT AUTO 34.7 % (24.0-44.0); MEAN CORPUSCULAR HEMOGLOBIN 30.1 pg (28.0-32.0); MEAN CORPUSCULAR HGB CONC 33.6 g/dL (32.0-36.0); MEAN CORPUSCULAR VOLUME 89.6 fL (83.0-99.0); MEAN PLATELET VOLUME 10.7 fL (9.4-12.3); MONOCYTES ABSOLUTE AUTO 0.27 K/uL (0.00-0.80); MONOCYTES PERCENT AUTO 5.4 % (0.0-8.0); NEUTROPHILS PERCENT AUTO 57.5 % (41.0-71.0); PLATELET COUNT,PLT 259 K/uL (150-400); RED BLOOD CELL COUNT 4.52 M/uL (4.10-5.30); WHITE BLOOD CELL COUNT,WBC 5.04 K/uL (3.9-11.3)
[2024-09-25 19:47] LABS: A/G RATIO 1.3 (0.9-1.6); ALANINE AMINOTRANSFERASE,ALT 16 IU/L (14-63); ALBUMIN 3.9 g/dL (3.4-5.0); ALKALINE PHOSPHATASE 82 U/L (46-116); ASPARTATE AMNIOTRANSFERASE,AST 10 IU/L (15-37); BILIRUBIN TOTAL 0.3 mg/dL (0.2-1.0); BLOOD UREA NITROGEN,BUN 14 mg/dL (7.0-18.0); CALCIUM 8.9 mg/dL (8.5-10.1); CARBON DIOXIDE,CO2 23.6 mmol/L (21.0-32.0); CHLORIDE,CL 109 mmol/L (98-107); CREATININE 0.9 mg/dL (0.6-1.0); GLUCOSE RANDOM 110 mg/dL (74-106); LIPASE 20 U/L (16-77); POTASSIUM,K 3.3 mmol/L (3.5-5.1); PROTEIN TOTAL,TP 6.8 g/dL (6.4-8.2); SODIUM,NA 143 mmol/L (136-145)
[2024-09-25 19:49] LABS: ESTIMATED GFR 85 mL/min (>60)
[2024-09-25] MEDS: Sodium Chloride 0.9% 1,000 ML IV ONE (21:39)
[2024-09-25] MEDS: Ketorolac 30 MG/ML SDV IVPUSH ONE (21:39)
[2024-09-25] MEDS: Ketorolac 30 MG/ML SDV IM ONE (21:40)
== END 2024-09-25 22:44 | disposition home or self-care (01) ==
LOC: MW.ED 15:20
DX: R51.9 Headache, unspecified (principal); R42 Dizziness and giddiness; Z90.49 Acquired absence of other specified parts of digestive tract; Z88.0 Allergy status to penicillin; Z91.040 Latex allergy status; Z91.013 Allergy to seafood; Z79.899 Other long term (current) drug therapy; Z75.8 Other problems related to medical facilities and other health care
CPT/HCPCS: 36415; 70450; 80053; 83690; 85025; 96372; 99284; J1885; 99283